=== PATIENT | female | born 1945 | race Caucasian/White ===

== ENCOUNTER 2017-02-12 07:22 | Day surgery (SDC) | payer MEDICARE, OTHER ==
[~2017-02-12 07:22] MED LIST: BUPIVACAINE HCL 0.75% INJ/PF (7.5 MG/1 ML) 10 ML SDV OD PRN; KETOROLAC TROMETHAMINE 0.45% 4 DROP/0.4 ML DROPERETTE OD PRN; LIDOCAINE 4% INJ/PF (40 MG/ML) 5 ML AMPUL OD PRN; TETRACAINE HCL 0.5% OPH SOLN 2 ML OD PRN
[2017-02-12] MEDS ORDERED: EPINEPHRINE INJ/PF 1 MG/1 ML AMPULE ONE (08:00)
[2017-02-12] MEDS ORDERED: CHONDR SU A NA/HYALUR INTRAOC KIT (SURGICARE) ONE (08:00)
[2017-02-12] MEDS ORDERED: LIDOCAINE 1% INJ-PF (10 MG/ML) 30 ML SDV ONE (08:00)
[2017-02-12] MEDS: CYCLOPENTOLATE 0.2%/PHENYLEPHRINE 1% OPH SOLN 2 ML OD PRN ×3 (08:04→08:40)
[2017-02-12] MEDS: TROPICAMIDE 1% OPH SOLN 3 ML OD PRN ×3 (08:04→08:40)
[2017-02-12] MEDS: BESIFLOXACIN HCL 0.6% OPH SUSP 5 ML BOTTLE OD PRN ×4 (08:05→09:16)
[2017-02-12] MEDS: LIDOCAINE 3.5% OPH GEL/PF 1 ML/TUBE OS PRN ×3 (08:06→08:55)
[2017-02-12] MEDS: TOBRAMYCIN SULFATE/DEXAMETH OPH OINTMENT 3.5 GM ONE ×2 (09:16)
== END 2017-02-12 09:58 | disposition home or self-care (01) ==
LOC: SC 07:22
PROVIDERS: ATTEND Ophthalmology
PROC: 08RJ3JZ Replacement of Right Lens with Synthetic Substitute, Percutaneous Approach (ICD-10-PCS; principal; 2017-02-12 08:30)
DX: H25.11 Age-related nuclear cataract, right eye (principal); Z98.42 Cataract extraction status, left eye; Z96.1 Presence of intraocular lens; M19.90 Unspecified osteoarthritis, unspecified site; E11.9 Type 2 diabetes mellitus without complications; I10 Essential (primary) hypertension; E78.00 Pure hypercholesterolemia, unspecified; E03.9 Hypothyroidism, unspecified; K21.9 Gastro-esophageal reflux disease without esophagitis; J44.9 Chronic obstructive pulmonary disease, unspecified; I49.9 Cardiac arrhythmia, unspecified; D64.9 Anemia, unspecified; Z79.84 Long term (current) use of oral hypoglycemic drugs; Z79.899 Other long term (current) drug therapy; Z87.891 Personal history of nicotine dependence
CPT/HCPCS: 66984; 82962; V2630; J3490 ×3; A9270 ×2; J0171; 142

== ENCOUNTER → 2017-08-19 | Outpatient (CLI) | payer MEDICARE, OTHER ==
--- NOTE | 2017-08-19 16:20 | WOMENS IMAGING REPORT ---
EXAM DESCRIPTION: BILAT SCREENING MAMMO W/CAD COMPLETED DATE/TIME: 08/19/2017 11:04 am REASON FOR STUDY: ROUTINE SCREENING;Z12.31 Z12.31 ENCNTR SCREEN MAMMOGRAM FOR MALIGNANT NEOPLASM OF MARY COMPARISON: 2008 TECHNIQUE: Standard craniocaudal and mediolateral oblique views of each breast recorded using Wowsaia l acquisition. LIMITATIONS: None. FINDINGS: RIGHT BREAST MASSES: No suspicious masses. CALCIFICATIONS: No new or suspicious calcifications. ARCHITECTURAL DISTORTION: None. DEVELOPING DENSITY: None. ASYMMETRY: None noted. OTHER: No other significant findings. LEFT BREAST MASSES: No suspicious masses. CALCIFICATIONS: Coarse dense benign appearing calcification left breast retroareolar region unchanged from 2009. In the left breast about 5 cm from the nipple at the 11 o'clock position faint microcalc ifications are present which require further investigation with compression magnification views and l eft breast 90 mediolateral view. ARCHITECTURAL DISTORTION: None. DEVELOPING DENSITY: None. ASYMMETRY: None noted. OTHER: No other significant findings. Read with the assistance of CAD. .[facility] - R2 Cenova Version 1.3 .[facility] - R2 Cenova Version 1.3 .[facility] - R2 Cenova Version 2.4 .[facility] R2 Cenova Version 2.4 .[facility] - R2 Medical Claims Specialist Version 9.2 IMPRESSION: No mammographic evidence for malignancy right breast Left breast microcalcifications new since 2009, for which additional diagnostic mammograms are recomm ended BREAST DENSITY: b. There are scattered areas of fibroglandular density. BIRAD: 0 Incomplete: Needs Additional Imaging Evaluation and/or prior Mammograms for Comparison. RECOMMENDATION: RECOMMENDED FOLLOW-UP: Additional left breast diagnostic mammograms The patient will be contacted for additional imaging. COMMENT: The patient has been notified of the results by letter per SA requirements. Additional no tification policies are in place for contacting patient with suspicious or incomplete findings. Quality ID #[id number]: The [employer] recommends an annual screening mammogram for women aged 40 years or over. This facility utilizes a reminder system to ensure that all patients receive reminder letters, and/or direct phone calls for appointments. This includes reminders for routine scr eening mammograms, diagnostic mammograms, or other Breast Imaging Interventions when appropriate. Th is patient will be placed in the appropriate reminder system. The [employer] (ACR) has developed recommendations for screening MRI of the breast s in certain patient populations, to be used in conjunction with mammography. Breast MRI surveillanc e may be appropriate for women with more than 20% lifetime risk of developing breast cancer as deter mined by genetic testing, significant family history of the disease, or history of mantle radiation f or Hodgkins Disease. ACR Practice Guidelines 2008. TECHNICAL DOCUMENTATION: FINDING NUMBER: (1) ASSESSMENT: (1) JOB ID: [id number] [employer]- All Rights Reserved Reading location - IP/workstation name: [facility]
== END ==
LOC: WI 11:40
PROVIDERS: ATTEND Physician Assistant Medical
DX: Z12.31 Encounter for screening mammogram for malignant neoplasm of breast (principal)
CPT/HCPCS: 77067

== ENCOUNTER → 2017-09-02 | Outpatient (CLI) | payer MEDICARE, OTHER ==
--- NOTE | 2017-09-02 18:42 | WOMENS IMAGING REPORT ---
EXAM DESCRIPTION: LEFT DIAGNOSTIC MAMMO W/CAD COMPLETED DATE/TIME: 09/02/2017 10:16 am REASON FOR STUDY: CALCIFICATIONS; R92.0 R92.0 MAMMOGRAPHIC MICROCALCIFICATION FOUND ON DX IMAGING O F COMPARISON: Mammograms 08/19/2017, 08/11/2008 TECHNIQUE: Compression magnification craniocaudal and 90 mediolateral images of the breast recorded with digital acquisition. Left whole breast 90 mediolateral view LIMITATIONS: None. FINDINGS: BREAST: Left MASSES: No suspicious masses. CALCIFICATIONS: Coarse dense benign appearing calcification in the retroareolar region 12 o'clock pos ition. Coarse dense calcifications left breast 12 o'clock position 5 cm from the nipple. ARCHITECTURAL DISTORTION: None. DEVELOPING DENSITY: None. ASYMMETRY: None noted. OTHER: No other significant findings. Read with the assistance of CAD. .[facility] - R2 Cenova Version 1.3 .[facility] - R2 Cenova Version 1.3 .[facility] - R2 Cenova Version 2.4 .[facility] [place] R2 Cenova Version 2.4 .[facility] - R2 [employer] Version 9.2 IMPRESSION: No mammographic evidence for malignancy BREAST DENSITY: b. There are scattered areas of fibroglandular density. BIRAD: 2 Benign findings. RECOMMENDATION: RECOMMENDED FOLLOW UP: Please continue yearly bilateral screening in July 2018. Pl ease consider bilateral screening tomosynthesis SPECIFIC INTERVENTION/IMAGING/CONSULTATION RECOMMENDED:No additional intervention/ imaging/consultati on needed at this time. COMMUNICATION:Patient notified by letter COMMENT: The patient has been notified of the results by letter per SA requirements. Additional no tification policies are in place for contacting patient with suspicious or incomplete findings. Quality ID #[id number]: The [employer] recommends an annual screening mammogram for women aged 40 years or over. This facility utilizes a reminder system to ensure that all patients receive reminder letters, and/or direct phone calls for appointments. This includes reminders for routine scr eening mammograms, diagnostic mammograms, or other Breast Imaging Interventions when appropriate. Th is patient will be placed in the appropriate reminder system. The [employer] (ACR) has developed recommendations for screening MRI of the breast s in certain patient populations, to be used in conjunction with mammography. Breast MRI surveillanc e may be appropriate for women with more than 20% lifetime risk of developing breast cancer as deter mined by genetic testing, significant family history of the disease, or history of mantle radiation f or Hodgkins Disease. ACR Practice Guidelines 2008. TECHNICAL DOCUMENTATION: FINDING NUMBER: (1) ASSESSMENT: (1) JOB ID: [id number] [employer]- All Rights Reserved Reading location - IP/workstation name: [facility]-RR2
== END ==
LOC: WI 10:01
PROVIDERS: ATTEND Family Medicine
DX: R92.0 Mammographic microcalcification found on diagnostic imaging of breast (principal)

== ENCOUNTER 2018-05-07 11:25 | Emergency (ER) | payer MEDICARE, OTHER ==
[2018-05-07] MEDS ORDERED: NORMAL SALINE 1000 ML 500 ML IV ONE (11:54)
--- NOTE | 2018-05-07 11:56 | ER Document Report ---
ED Medical Screen (RME) - General Chief Complaint: Abnormal Lab Results Stated Complaint: ABNORMAL LABS Time Seen by Provider: 05/07/18 11:52 Notes: 72 years old female with a history of blood transfusion was sent over here for another blood transfusion due to low blood count. Sent over by the primary care physician. She had extensive extensive workup done in the hospital. TRAVEL OUTSIDE OF THE [place] IN LAST 30 DAYS: No - Related Data Allergies/Adverse Reactions: No Known Allergies Allergy (Verified 05/07/18 11:31) Past Medical History - Social History Frequency of alcohol use: None Drug Abuse: None - Past Medical History Cardiac Medical History: Reports: Hx Hypercholesterolemia, Hx Hypertension - MEDICATED Denies: Hx Heart Attack Pulmonary Medical History: Denies: Hx Asthma Neurological Medical History: Denies: Hx Cerebrovascular Accident, Hx Seizures Endocrine Medical History: Reports: Hx Diabetes Mellitus Type 2 Renal/ Medical History: Reports: Hx Kidney Stones. Denies: Hx Peritoneal Dialysis GI Medical History: Reports: Hx Hiatal Hernia. Denies: Hx Hepatitis, Hx Ulcer Musculoskeltal Medical History: Reports Hx Arthritis Psychiatric Medical History: Reports: Hx Depression Infectious Medical History: Denies: Hx Hepatitis Past Surgical History: Reports: Hx Cholecystectomy, Hx Tonsillectomy. Denies: Hx Mastectomy, Hx Open Heart Surgery, Hx Pacemaker - Immunizations Hx Diphtheria, Pertussis, Tetanus Vaccination: No History of Influenza Vaccine for 03/2017 - 07/2017 Season: Refused Physical Exam - Vital signs Vitals: Temp Pulse Resp BP Pulse Ox 98.5 F 105 H 14 116/45 L 99 05/07/18 11:31 05/07/18 11:31 05/07/18 11:31 05/07/18 11:31 05/07/18 11:31 Course - Vital Signs Vital signs: Temp Pulse Resp BP Pulse Ox 98.5 F 105 H 14 116/45 L 99 05/07/18 11:31 05/07/18 11:31 05/07/18 11:31 05/07/18 11:31 05/07/18 11:31 Doctor's Discharge - Discharge Referrals: SRINI MENDOZA MD [Primary Care Provider] - Follow up as needed
[2018-05-07 12:58] LABS: ABSOLUTE EOSINOPHILS # (AUTO) 0.1 10^3/uL (0.0-0.6); ABSOLUTE LYMPHOCYTES (AUTO) 0.2 10^3/uL (0.5-4.7); ABSOLUTE MONOCYTES (AUTO) 0.1 10^3/uL (0.1-1.4); ABSOLUTE NEUT (AUTO) 1.9 10^3/uL (1.7-8.2); BASOPHILS % (AUTO) 0.6 % (0-2); EOSINOPHILS % (AUTO) 2.7 % (0-6); HEMATOCRIT 19.7 % (36.0-47.0); LYMPHOCYTES % (AUTO) 9.9 % (13-45); MEAN CORPUSCULAR HEMOGLOBIN 27.2 pg (27.0-33.4); MEAN CORPUSCULAR HGB CONC 32.7 g/dL (32.0-36.0); MEAN CORPUSCULAR VOLUME 83 fl (80-97); MONOCYTES % (AUTO) 5.6 % (3-13); RED BLOOD COUNT 2.36 10^6/uL (3.72-5.28); RED CELL DISTRIBUTION WIDTH 19.5 % (11.5-14.0); SEGMENTED NEUTROPHILS % (AUTO) 81.2 % (42-78); TOTAL CELLS COUNTED % (AUTO) 100 %; WHITE BLOOD COUNT 2.4 10^3/uL (4.0-10.5)
[2018-05-07 13:18] LABS: ALANINE AMINOTRANSFERASE 16 U/L (9-52); ALBUMIN 3.1 g/dL (3.5-5.0); ALKALINE PHOSPHATASE 118 U/L (38-126); ANION GAP 11 (5-19); ASPARTATE AMINO TRANSFERASE 33 U/L (14-36); BILIRUBIN,DIRECT 0.3 mg/dL (0.0-0.4); BILIRUBIN,TOTAL 0.6 mg/dL (0.2-1.3); BLOOD UREA NITROGEN 15 mg/dL (7-20); CALCIUM 8.5 mg/dL (8.4-10.2); CARBON DIOXIDE 24 mmol/L (22-30); CHLORIDE 108 mmol/L (98-107); GLUCOSE 205 mg/dL (75-110); POTASSIUM 4.3 mmol/L (3.6-5.0); SODIUM 142.6 mmol/L (137-145); TOTAL PROTEIN 7.9 g/dL (6.3-8.2)
[2018-05-07] MEDS ORDERED: NORMAL SALINE 250 ML IV PRN (13:19)
[2018-05-07 13:27] LABS: HEMOGLOBIN 6.4 g/dL (12.0-15.5)
[2018-05-07 13:28] LABS: PLATELET COUNT 95 10^3/uL (150-450)
--- NOTE | 2018-05-07 13:34 | ER Document Report ---
ED General - General Chief Complaint: Abnormal Lab Results Stated Complaint: ABNORMAL LABS Time Seen by Provider: 05/07/18 11:52 Notes: 72-year-old female with a history of cirrhosis of the liver and esophageal varices presents with low hemoglobin. The patient has been worked up extensively in the past for this she has had multiple clipping of varices. She denies any hematemesis. She has dark stools from time to time. This is not abnormal for her she gets frequent blood transfusions. She sees [facility] gastroenterology [facility]. The patient was sent over for blood transfusion. TRAVEL OUTSIDE OF THE [place] IN LAST 30 DAYS: No - Related Data Allergies/Adverse Reactions: No Known Allergies Allergy (Verified 05/07/18 11:31) Past Medical History - Social History Smoking Status: Never Smoker Frequency of alcohol use: None Drug Abuse: None Family History: Reviewed & Not Pertinent Patient has suicidal ideation: No Patient has homicidal ideation: No - Past Medical History Cardiac Medical History: Reports: Hx Hypercholesterolemia, Hx Hypertension - MEDICATED Denies: Hx Heart Attack Pulmonary Medical History: Denies: Hx Asthma Neurological Medical History: Denies: Hx Cerebrovascular Accident, Hx Seizures Endocrine Medical History: Reports: Hx Diabetes Mellitus Type 2 Renal/ Medical History: Reports: Hx Kidney Stones. Denies: Hx Peritoneal Dialysis GI Medical History: Reports: Hx Hiatal Hernia. Denies: Hx Hepatitis, Hx Ulcer Musculoskeletal Medical History: Reports Hx Arthritis Psychiatric Medical History: Reports: Hx Depression Infectious Medical History: Denies: Hx Hepatitis Past Surgical History: Reports: Hx Cholecystectomy, Hx Tonsillectomy. Denies: Hx Mastectomy, Hx Open Heart Surgery, Hx Pacemaker - Immunizations Hx Diphtheria, Pertussis, Tetanus Vaccination: No Review of Systems - Review of Systems Constitutional: Malaise, Weakness. denies: Chills, Fever Gastrointestinal: Black stools Hematologic/Lymphatic: Anemia, Easy bleeding -: Yes All other systems reviewed and negative Physical Exam - Vital signs Vitals: Temp Pulse Resp BP Pulse Ox 98.5 F 105 H 14 116/45 L 99 05/07/18 11:31 12 11:31 05/07/18 11:31 05/07/18 11:31 05/07/18 11:31 - Notes Notes: GENERAL_APPEARANCE: well_nourished, alert, cooperative, no_acute_distress, no_ obvious_discomfort. VITALS: reviewed, see vital signs table. HEAD: no_swelling\tenderness on the head. EYES: PERRL, EOMI, conjunctiva_pale NOSE: no_nasal_discharge. MOUTH: (-)decreased moisture. THROAT: no_throat_inflammation, no_airway_obstruction. no_lymphadenopathy NECK: supple, no_neck_tenderness, (-)thyromegaly. BACK: no_back_tenderness. CHEST_WALL: no_chest_tenderness. LUNGS: no_wheezing, no_rales, no_rhonchi, (-)accessory muscle use, good air exchange bilateral. HEART: normal_rate, normal_rhythm, normal_S1, normal_S2, (-)S3, (-)S4, no_ murmur, no_rub. ABDOMEN: normal_BS, soft, ascites is present, no_abd_tenderness, (-)guarding, ( -)rebound, no_organomegaly, no_abd_masses. EXTREMITIES: good pulses in all_extremities, no_swelling\tenderness in the extremities, no_edema. SKIN: warm, dry, good_color, no_rash. Chronic skin changes associated with cirrhosis MENTAL_STATUS: speech_clear, oriented_X_3, normal_affect, responds_ appropriately to questions. NEURO: Neg Motor or Sensory Deficits on exam, CN 2-12 intact, DTR 2+ symmetric x 4, No cerbellar signs Course - Re-evaluation Re-evalutation: 05/07/18 13:33 The patient presents with anemia. She has had this on frequent times. She has cirrhosis and likely has a baseline coagulopathy due to that. She also has esophageal varices which have been clipped multiple times she has no signs of brisk active bleeding no hematemesis. States she has black stools on and off from time to time. She is seeing gastroenterology on multiple occasions. She is been told to get blood transfusion she states she usually has to get at least 2 units once a month. Patient stated she is really in no pain and this is not new she was sent in for blood only no additional workup. She is happy to follow-up with her senior technical analyst Dr[facility]. She was transfused 2 units of blood and will be discharged home she felt better after the transfusion of blood. 12/06/18 15:52 Patient is doing well and will be discharged - Vital Signs Vital signs: Temp Pulse Resp BP Pulse Ox 98.3 F 98 22 H 115/63 99 05/07/18 15:49 05/07/18 15:49 05/07/18 15:49 05/07/18 15:49 05/07/18 15:49 - Laboratory Result Diagrams: 05/07/18 12:10 05/07/18 12:10 Laboratory results interpreted by me: 05/07/18 05/07/18 05/07/18 12:10 12:10 12:10 WBC 2.4 L RBC 2.36 L Hgb 6.4 L Hct 19.7 L RDW 19.5 H Plt Count 95 L Seg Neutrophils % 81.2 H Lymphocytes % 9.9 L Absolute Lymphocytes 0.2 L Chloride 108 H Glucose 205 H POC Glucose Albumin 3.1 L Crossmatch See Detail 05/07/18 13:03 WBC RBC Hgb Hct RDW Plt Count Seg Neutrophils % Lymphocytes % Absolute Lymphocytes Chloride Glucose POC Glucose 180 H Albumin Crossmatch Discharge - Discharge Clinical Impression: Anemia Qualifiers: Anemia type: iron deficiency Iron deficiency anemia type: chronic blood loss Qualified Code(s): D50.0 - Iron deficiency anemia secondary to blood loss ( chronic) Condition: Good Disposition: HOME, SELF-CARE Instructions: Anemia ([facility]) Additional Instructions: Please follow-up with Dr. Mcgregor from [facility] gastroenterology Referrals: SRINI MENDOZA MD [Primary Care Provider] - Follow up as needed
[2018-05-07 18:50] VITALS: BP 133/73
== END 2018-05-07 19:07 | disposition home or self-care (01) ==
LOC: ER 11:25
DX: D50.0 Iron deficiency anemia secondary to blood loss (chronic) (principal); R53.81 Other malaise; K74.60 Unspecified cirrhosis of liver; E78.00 Pure hypercholesterolemia, unspecified; I10 Essential (primary) hypertension; E11.9 Type 2 diabetes mellitus without complications; Z87.442 Personal history of urinary calculi; Z90.49 Acquired absence of other specified parts of digestive tract
CPT/HCPCS: 99284; 86900; 86901; 36415; 36430; 86850; 82962; 85025; 80053; 86920; P9016

== ENCOUNTER 2018-11-16 11:46 | Emergency (ER) | payer MEDICARE, OTHER ==
--- NOTE | 2018-11-16 12:15 | ER Document Report ---
ED Medical Screen (RME) - General Chief Complaint: Abnormal Lab Results Stated Complaint: ABNORMAL LABS Time Seen by Provider: 11/16/18 12:11 Primary Care Provider: SRINI MENDOZA MD [Primary Care Provider] - Follow up as needed TRAVEL OUTSIDE OF THE [place] IN LAST 30 DAYS: No - HPI Notes: 11/16/18 12:14 Patient is a 73-year-old female with a history of liver cirrhosis, anemia with previous need for transfusion, diabetes who presents for hemoglobin of 6.8 and dizziness with standing/ambulation. Patient states that she is otherwise feeling well and is eating and drinking without difficulty. She is urinating normally and having normal bowel movements. She has not noticed any melena, hematochezia, or any other areas of bleeding. Denies MUELLER, fever, neck pain, URI, CP, SOB, Abd pain, dysuria, back pain, or rash. I have treated and performed a rapid initial assessment of this patient. A comprehensive ED assessment and evaluation of the patient, analysis of test resu lts and completion of medical decision making process will be conducted by additional ED providers. PHYSICAL EXAMINATION: GENERAL: Well-appearing, well-nourished and in no acute distress. A&Ox4. A nswers questions appropriately. LUNGS: Breath sounds clear to auscultation bilaterally and equal. No wheezes rales or rhonchi. HEART: Regular rate and rhythm without murmurs, rubs, gallops. - Related Data Allergies/Adverse Reactions: No Known Allergies Allergy (Verified 05/07/18 11:31) Past Medical History - Past Medical History Cardiac Medical History: Reports: Hx Hypercholesterolemia, Hx Hypertension - MEDICATED Denies: Hx Heart Attack Pulmonary Medical History: Reports: Hx COPD Denies: Hx Asthma Neurological Medical History: Denies: Hx Cerebrovascular Accident, Hx Seizures Endocrine Medical History: Reports: Hx Diabetes Mellitus Type 2 Renal/ Medical History: Reports: Hx Kidney Stones. Denies: Hx Peritoneal Dialysis GI Medical History: Reports: Hx Hiatal Hernia. Denies: Hx Hepatitis, Hx Ulcer Musculoskeltal Medical History: Reports Hx Arthritis Psychiatric Medical History: Reports: Hx Depression Infectious Medical History: Denies: Hx Hepatitis Past Surgical History: Reports: Hx Cholecystectomy, Hx Tonsillectomy. Denies: Hx Mastectomy, Hx Open Heart Surgery, Hx Pacemaker - Immunizations Hx Diphtheria, Pertussis, Tetanus Vaccination: No History of Influenza Vaccine for 03/2017 - 07/2017 Season: Refused Physical Exam - Vital signs Vitals: Temp Pulse Resp BP Pulse Ox 97.7 F 69 16 111/45 L 97 11/16/18 12:02 11/16/18 12:02 11/16/18 12:02 11/16/18 12:02 11/16/18 12:02 Course - Vital Signs Vital signs: Temp Pulse Resp BP Pulse Ox 97.7 F 69 16 111/45 L 97 11/16/18 12:02 11/16/18 12:02 11/16/18 12:02 11/16/18 12:02 11/16/18 12:02 Doctor's Discharge - Discharge Referrals: SRINI MENDOZA MD [Primary Care Provider] - Follow up as needed
[2018-11-16 13:16] LABS: ABSOLUTE EOSINOPHILS # (AUTO) 0.1 10^3/uL (0.0-0.6); ABSOLUTE LYMPHOCYTES (AUTO) 0.2 10^3/uL (0.5-4.7); ABSOLUTE MONOCYTES (AUTO) 0.1 10^3/uL (0.1-1.4); BASOPHILS % (AUTO) 0.9 % (0-2); EOSINOPHILS % (AUTO) 3.6 % (0-6); HEMATOCRIT 21.2 % (36.0-47.0); LYMPHOCYTES % (AUTO) 8.3 % (13-45); MEAN CORPUSCULAR HGB CONC 31.7 g/dL (32.0-36.0); MEAN CORPUSCULAR VOLUME 82 fl (80-97); MONOCYTES % (AUTO) 5.7 % (3-13); PLATELET COUNT 104 10^3/uL (150-450); RED BLOOD COUNT 2.59 10^6/uL (3.72-5.28); RED CELL DISTRIBUTION WIDTH 18.8 % (11.5-14.0); SEGMENTED NEUTROPHILS % (AUTO) 81.5 % (42-78); TOTAL CELLS COUNTED % (AUTO) 100 %; WHITE BLOOD COUNT 2.5 10^3/uL (4.0-10.5)
[2018-11-16 13:18] LABS: HEMOGLOBIN 6.7 g/dL (12.0-15.5)
[2018-11-16 13:21] LABS: INTERNATIONAL RATION (INR) 1.18; PROTHROMBIN TIME 15.6 SEC (11.4-15.4)
[2018-11-16 13:21] LABS: APPEARANCE,URINE CLEAR; BILIRUBIN,URINE NEGATIVE (NEGATIVE); COLOR,URINE YELLOW; GLUCOSE, URINE >=500 mg/dL (NEGATIVE); KETONES,URINE NEGATIVE (NEGATIVE); LEUKOCYTE ESTERASE,URINE TRACE (NEGATIVE); NITRITE,URINE NEGATIVE (NEGATIVE); PROTEIN,URINE NEGATIVE (NEGATIVE); URINE SPECIFIC GRAVITY 1.025; UROBILINOGEN,URINE NEGATIVE mg/dL (<2.0)
[2018-11-16 13:22] LABS: PARTIAL THROMBOPLASTIN TIME 38.1 SEC (23.5-35.8)
[2018-11-16 13:37] LABS: ALANINE AMINOTRANSFERASE 17 U/L (9-52); ALBUMIN 3.3 g/dL (3.5-5.0); ALKALINE PHOSPHATASE 96 U/L (38-126); ANION GAP 7 (5-19); ASPARTATE AMINO TRANSFERASE 34 U/L (14-36); BILIRUBIN,DIRECT 0.4 mg/dL (0.0-0.4); BILIRUBIN,TOTAL 0.7 mg/dL (0.2-1.3); BLOOD UREA NITROGEN 15 mg/dL (7-20); CALCIUM 8.9 mg/dL (8.4-10.2); CARBON DIOXIDE 25 mmol/L (22-30); CHLORIDE 107 mmol/L (98-107); GLUCOSE 215 mg/dL (75-110); POTASSIUM 4.5 mmol/L (3.6-5.0); TOTAL PROTEIN 8.6 g/dL (6.3-8.2)
[2018-11-16] MEDS ORDERED: NORMAL SALINE 250 ML IV PRN ×2 (13:38)
--- NOTE | 2018-11-16 13:42 | ER Document Report ---
ED General - General Chief Complaint: Abnormal Lab Results Stated Complaint: ABNORMAL LABS Time Seen by Provider: 11/16/18 12:11 Primary Care Provider: SRINI MENDOZA MD [ACTIVE STAFF] - Follow up tomorrow TRAVEL OUTSIDE OF THE [place] IN LAST 30 DAYS: No - HPI Notes: Patient is a 73-year-old female that presents to the emergency department for chief complaint of anemia. Patient presented from home upon the request of Dr. Mendoza for blood transfusion. She has a history of anemia and states that she is not sure why she is so anemic. She is on Procrit. She states she has a GI physician who has done colonoscopy and endoscopy and not found a source of bleeding. She denies any new black or bloody stools. She states she has been getting blood transfusion every 4 to 5 weeks for the last year. She states she has made it about 8 weeks this time. She does state over the last month she has had increased fatigue and felt some shortness of breath this week with exertion. She denies any active bleeding or other concerns. She denies recent illness, chest pain, palpitations, syncope, nausea/vomiting, fevers and abdominal pain. Past Medical History: Diabetes, anemia, hypothyroidism, hyperlipidemia Past Surgical History: Reviewed in chart Social History: Lives at home with family. Denies tobacco and alcohol Family History: Reviewed and noncontributory for presenting illness Allergies: Reviewed, see documented allergy list. REVIEW OF SYSTEMS: CONSTITUTIONAL : No fever No chills No diaphoresis No recent illness Generalized weakness EENT: No vision changes No congestion No sore throat CARDIOVASCULAR: No chest pain No palpitations RESPIRATORY: shortness of breath No cough No difficulty breathing GASTROINTESTINAL: No abdominal pain No nausea No vomiting No diarrhea GENITOURINARY: No dysuria No hematuria No difficulty urinating MUSCULOSKELETAL: No back pain No leg pain No arm pain SKIN: No rashes No lesions LYMPHATIC: No swollen, enlarged glands. NEUROLOGICAL: lightheadedness No headache No weakness No paresthesias PSYCHIATRIC: No anxiety No depression PHYSICAL EXAMINATION: Vital signs reviewed, nursing noted reviewed. GENERAL: Well-appearing, well-nourished and in no acute distress. HEAD: Atraumatic, normocephalic. EYES: Eyes appear normal, extraocular movements intact, sclera anicteric, conjunctiva are pale ENT: nares patent, oropharynx clear without exudates. Dry mucous membranes. NECK: Normal range of motion, supple without lymphadenopathy LUNGS: Breath sounds clear to auscultation bilaterally and equal. No wheezes rales or rhonchi. HEART: Regular rate and rhythm without murmurs ABDOMEN: Protuberant, soft, nontender, normoactive bowel sounds. No rebound, guarding, or rigidity. No masses appreciated. EXTREMITIES: Nontender, good range of motion, no pitting or edema. NEUROLOGICAL: No focal neurological deficits. Moves all extremities spontaneously Motor and sensory grossly intact on exam. PSYCH: Normal mood, normal affect. SKIN: Warm, Dry, normal turgor. Pale - Related Data Allergies/Adverse Reactions: No Known Allergies Allergy (Verified 05/07/18 11:31) Past Medical History - Social History Smoking Status: Former Smoker Frequency of alcohol use: None Drug Abuse: None Family History: Reviewed & Not Pertinent Patient has suicidal ideation: No Patient has homicidal ideation: No - Past Medical History Cardiac Medical History: Reports: Hx Hypercholesterolemia, Hx Hypertension - MEDICATED Denies: Hx Heart Attack Pulmonary Medical History: Reports: Hx COPD Denies: Hx Asthma Neurological Medical History: Denies: Hx Cerebrovascular Accident, Hx Seizures Endocrine Medical History: Reports: Hx Diabetes Mellitus Type 2 Renal/ Medical History: Reports: Hx Kidney Stones. Denies: Hx Peritoneal Dialysis GI Medical History: Reports: Hx Hiatal Hernia. Denies: Hx Hepatitis, Hx Ulcer Musculoskeletal Medical History: Reports Hx Arthritis Psychiatric Medical History: Reports: Hx Depression Infectious Medical History: Denies: Hx Hepatitis Past Surgical History: Reports: Hx Cholecystectomy, Hx Tonsillectomy. Denies: Hx Mastectomy, Hx Open Heart Surgery, Hx Pacemaker - Immunizations Hx Diphtheria, Pertussis, Tetanus Vaccination: No Physical Exam - Vital signs Vitals: Temp Pulse Resp BP Pulse Ox 97.7 F 69 16 111/45 L 97 11/16/18 12:02 11/16/18 12:02 11/16/18 12:02 11/16/18 12:02 11/16/18 12:02 Course - Re-evaluation Re-evalutation: 11/16/18 13:44 Vitals reviewed. Nursing notes reviewed. Patient has pancytopenia with a hemoglobin of 6.7. Chart review shows similar thrombocytopenia and leukopenia in the past. Patient will be transfused 2 units packed red blood cells for her anemia. She currently has no symptoms of active bleeding. She does appear pale but is otherwise hemodynamically stable. Patient has no other complaints other than wanting a blood transfusion. Plan to transfuse 2 units packed red blood cells and if tolerated well follow with Dr. Mendoza in the office for close reevaluation 11/16/18 17:39 Patient reevaluated. She has had about half of her first unit of blood. She states she is feeling better. She is not having any reaction to the transfusion or difficulty breathing. Patient will continue to receive blood transfusion and be discharged after if no further complications arise. Laboratory 11/16/18 11/16/18 11/16/18 12:32 12:44 12:44 WBC 2.5 L RBC 2.59 L Hgb 6.7 L Hct 21.2 L MCV 82 MCH 26.0 L MCHC 31.7 L RDW 18.8 H Plt Count 104 L Seg Neutrophils % 81.5 H Lymphocytes % 8.3 L Monocytes % 5.7 Eosinophils % 3.6 Basophils % 0.9 Absolute Neutrophils 2.0 Absolute Lymphocytes 0.2 L Absolute Monocytes 0.1 Absolute Eosinophils 0.1 Absolute Basophils 0.0 PT INR APTT Sodium 139.0 Potassium 4.5 Chloride 107 Carbon Dioxide 25 Anion Gap 7 BUN 15 Creatinine 0.84 Est GFR ( Amer) > 60 Est GFR (Non-Af Amer) > 60 Glucose 215 H Calcium 8.9 Total Bilirubin 0.7 Direct Bilirubin 0.4 Neonat Total Bilirubin Not Reportable Neonat Direct Bilirubin Not Reportable Neonat Indirect Bili Not Reportable AST 34 ALT 17 Alkaline Phosphatase 96 Total Protein 8.6 H Albumin 3.3 L Urine Color YELLOW Urine Appearance CLEAR Urine pH 6.0 Ur Specific [place] 1.025 Urine Protein NEGATIVE Urine Glucose (UA) >=500 H Urine Ketones NEGATIVE Urine Blood NEGATIVE Urine Nitrite NEGATIVE Urine Bilirubin NEGATIVE Urine Urobilinogen NEGATIVE Ur Leukocyte Esterase TRACE H Urine WBC (Auto) 2 Urine RBC (Auto) 3 Squamous Epi Cells Auto 2 Urine Ascorbic Acid 40 H Blood Type Antibody Screen Crossmatch 11/16/18 11/16/18 11/16/18 12:44 12:44 14:15 WBC RBC Hgb Hct MCV MCH MCHC RDW Plt Count Seg Neutrophils % Lymphocytes % Monocytes % Eosinophils % Basophils % Absolute Neutrophils Absolute Lymphocytes Absolute Monocytes Absolute Eosinophils Absolute Basophils PT 15.6 H INR 1.18 APTT 38.1 H Sodium Potassium Chloride Carbon Dioxide Anion Gap BUN Creatinine Est GFR ( Amer) Est GFR (Non-Af Amer) Glucose Calcium Total Bilirubin Direct Bilirubin Neonat Total Bilirubin Neonat Direct Bilirubin Neonat Indirect Bili AST ALT Alkaline Phosphatase Total Protein Albumin Urine Color Urine Appearance Urine pH Ur Specific [place] Urine Protein Urine Glucose (UA) Urine Ketones Urine Blood Urine Nitrite Urine Bilirubin Urine Urobilinogen Ur Leukocyte Esterase Urine WBC (Auto) Urine RBC (Auto) Squamous Epi Cells Auto Urine Ascorbic Acid Blood Type Cancelled A POSITIVE Antibody Screen Cancelled NEGATIVE Crossmatch See Detail See Detail - Vital Signs Vital signs: Temp Pulse Resp BP Pulse Ox 98 F 78 17 116/58 L 100 11/16/18 17:10 11/16/18 17:10 11/16/18 17:10 11/16/18 17:10 11/16/18 17:10 - Laboratory Result Diagrams: 11/16/18 12:44 11/16/18 12:44 Laboratory results interpreted by me: 11/16/18 11/16/18 11/16/18 12:32 12:44 12:44 WBC 2.5 L RBC 2.59 L Hgb 6.7 L Hct 21.2 L MCH 26.0 L MCHC 31.7 L RDW 18.8 H Plt Count 104 L Seg Neutrophils % 81.5 H Lymphocytes % 8.3 L Absolute Lymphocytes 0.2 L PT APTT Glucose 215 H Total Protein 8.6 H Albumin 3.3 L Urine Glucose (UA) >=500 H Ur Leukocyte Esterase TRACE H Urine Ascorbic Acid 40 H Crossmatch 11/16/18 11/16/18 11/16/18 12:44 12:44 14:15 WBC RBC Hgb Hct MCH MCHC RDW Plt Count Seg Neutrophils % Lymphocytes % Absolute Lymphocytes PT 15.6 H APTT 38.1 H Glucose Total Protein Albumin Urine Glucose (UA) Ur Leukocyte Esterase Urine Ascorbic Acid Crossmatch See Detail See Detail Discharge - Discharge Clinical Impression: Pancytopenia Condition: Stable Disposition: HOME, SELF-CARE Instructions: Anemia ([facility]) Additional Instructions: Please return to the emergency department if you have any worsening, or concern of your symptoms. Please return to the emergency department if you develop chest pain, difficulty breathing, severe abdominal pain, or ongoing vomiting. Please follow-up with your primary care physician in 2-3 days and any other recommended physicians. If prescribed, take all medications as directed. If you have any questions or concerns do not hesitate to return the emergency department for evaluation. Please see Dr. Mendoza in the next 1 to 2 days for reevaluation of your anemia Referrals: SRINI MENDOZA MD [ACTIVE STAFF] - Follow up tomorrow
[2018-11-16 21:51] VITALS: BP 150/73
== END 2018-11-16 21:51 | disposition home or self-care (01) ==
LOC: ER 11:46
DX: D64.9 Anemia, unspecified (principal); E03.9 Hypothyroidism, unspecified; E78.5 Hyperlipidemia, unspecified; E78.00 Pure hypercholesterolemia, unspecified; I10 Essential (primary) hypertension; J44.9 Chronic obstructive pulmonary disease, unspecified; E11.9 Type 2 diabetes mellitus without complications; M19.90 Unspecified osteoarthritis, unspecified site; F32.9 Major depressive disorder, single episode, unspecified; Z87.891 Personal history of nicotine dependence; Z90.49 Acquired absence of other specified parts of digestive tract
CPT/HCPCS: 99284; 86900; 86901; 36415; 36430; 86850; 85025; 85610; 85730; 80053; 81001; 86920; P9016

== ENCOUNTER → 2019-05-15 | Outpatient (CLI) | payer MEDICARE, OTHER | LOC: OD 08:40 | PROVIDERS: ATTEND Family Medicine | DX: K74.69 Other cirrhosis of liver (principal); D69.6 Thrombocytopenia, unspecified; K72.90 Hepatic failure, unspecified without coma; D63.8 Anemia in other chronic diseases classified elsewhere | CPT/HCPCS: 36415; 82140 ==

== ENCOUNTER 2019-08-01 10:45 | Inpatient (IN) | payer MEDICARE, OTHER ==
[2019-08-01] MEDS ORDERED: HYDROCODONE/ACETAMINOPHEN 5-325 MG TABLET PO ONE (11:00)
--- NOTE | 2019-08-01 11:10 | ER Document Report ---
ED Fall - General Chief Complaint: Fall Injury Stated Complaint: RIGHT HIP PAIN Time Seen by Provider: 08/01/19 10:51 Primary Care Provider: EDUARDO VALDEZ MD [Primary Care Provider] - Follow up as needed Notes: 74 y/o female presents for right hip pain after falling yesterday. Pt states she and her "got their wires crossed" and then she fell because he was going to turn on bedroom light while she was walking to turn on bathroom light. Pt states she usually walks with a walker. States she cannot walk due to the pain. Pt also has skin tears to right forearm. Pt denies hitting her head or LOC. Pt was offered pain medication by EMS but refused. Denies any previous injury or surgery to right hip. TRAVEL OUTSIDE OF THE [place] IN LAST 30 DAYS: No - Related data Allergies/Adverse Reactions: No Known Allergies Allergy (Verified 05/07/18 11:31) Past Medical History - Social History Smoking Status: Unknown if Ever Smoked Family History: Reviewed & Not Pertinent Patient has suicidal ideation: No Patient has homicidal ideation: No - Past Medical History Cardiac Medical History: Reports: Hx Hypercholesterolemia, Hx Hypertension - MEDICATED Denies: Hx Heart Attack Pulmonary Medical History: Reports: Hx COPD Denies: Hx Asthma Neurological Medical History: Denies: Hx Cerebrovascular Accident, Hx Seizures Endocrine Medical History: Reports: Hx Diabetes Mellitus Type 2 Renal/ Medical History: Reports: Hx Kidney Stones. Denies: Hx Peritoneal Tia lysis GI Medical History: Reports: Hx Hiatal Hernia. Denies: Hx Hepatitis, Hx Ulcer Musculoskeletal Medical History: Reports Hx Arthritis Psychiatric Medical History: Reports: Hx Depression Infectious Medical History: Denies: Hx Hepatitis Past Surgical History: Reports: Hx Cholecystectomy, Hx Tonsillectomy. Denies: Hx Mastectomy, Hx Open Heart Surgery, Hx Pacemaker - Immunizations Hx Diphtheria, Pertussis, Tetanus Vaccination: No Review of Systems - Review of Systems Notes: Constitutional: Negative for fever. HENT: Negative for sore throat. Eyes: Negative for visual changes. Cardiovascular: Negative for chest pain. Respiratory: Negative for shortness of breath. Gastrointestinal: Negative for abdominal pain, vomiting or diarrhea. Genitourinary: Negative for dysuria. Musculoskeletal: Positive for right hip pain. Negative for back pain. Skin: Negative for rash. Neurological: Negative for headaches, weakness or numbness. 10 point ROS negative except as marked above and in HPI. Physical Exam - Vital signs Vitals: Temp Pulse Resp BP Pulse Ox 98.1 F 106 H 18 118/49 L 97 08/01/19 10:46 08/01/19 10:46 08/01/19 10:46 08/01/19 10:46 08/01/19 10:46 - Notes Notes: GENERAL: Well-appearing, well-nourished and in no acute distress. HEAD: Atraumatic, normocephalic. EYES: Extraocular movements intact, sclera anicteric, conjunctiva are normal. NECK: Normal range of motion, supple without lymphadenopathy or JVD. Right hip: Tenderness to posterior hip. No tenderness to anterior hip or lateral hip. ROM limited due to pain. No tenderness to right knee. Distal pedal pulses 2+ bilaterally. Cap refill < 2 sec. Right forearm: Skin tears. FROM. NEUROLOGICAL: Cranial nerves II through XII grossly intact. Normal speech, normal gait. PSYCH: Normal mood, normal affect. SKIN: Warm, Dry, normal turgor, no rashes or lesions noted. Course - Re-evaluation Re-evalutation: 08/01/19 Right posterior hip pain. Pain upon movement. XR ordered. Pt usually ambulated with walker. 08/01/19 12:03 XR shows fractures of right superior and inferior pubic ramus. Discussed with attending, Dr. Tomas, who states admit to medicine with ortho consult. Page out to ortho, Dr. Patricio. 08/01/19 12:[address] Patricio who states he will consult. Requested consult be placed in computer. 08/01/19 12:[address] Carlos who states he will call back. 08/01/19 12:[address] Carlos who accepted pt for admission. Requested CBC. - Vital Signs Vital signs: Temp Pulse Resp BP Pulse Ox 98.1 F 106 H 18 118/49 L 97 08/01/19 10:46 08/01/19 10:46 08/01/19 10:46 08/01/19 10:46 08/01/19 10:46 Discharge - Discharge Clinical Impression: Fall Qualifiers: Encounter type: initial encounter Qualified Code(s): W19.XXXA - Unspecified fall, initial encounter Fracture of right superior pubic ramus Qualifiers: Encounter type: initial encounter Fracture type: closed Qualified Code(s): S32.511A - Fracture of superior rim of right pubis, initial encounter for closed fracture Fracture of right inferior pubic ramus Qualifiers: Encounter type: initial encounter Fracture type: closed Qualified Code(s): S32.591A - Other specified fracture of right pubis, initial encounter for closed fracture Condition: Stable Disposition: ADMITTED OBSERVATION Admitting Provider: Breanna (Hospitalist) Unit Admitted: Medical Floor Referrals: EDUARDO VALDEZ MD [Primary Care Provider] - Follow up as needed
--- NOTE | 2019-08-01 11:51 | RADIOLOGY REPORT (SQ) ---
EXAM DESCRIPTION: HIP RIGHT AP/LATERAL COMPLETED DATE/TIME: 08/01/2019 11:41 am REASON FOR STUDY: fall / bone tenderness COMPARISON: None. NUMBER OF VIEWS: Two views. TECHNIQUE: AP pelvis and additional frog-leg view of the right hip. LIMITATIONS: None. FINDINGS: MINERALIZATION: Normal. RIGHT HIP: No fracture or dislocation. Degenerative changes. No worrisome bone lesions. LEFT HIP: No fracture or dislocation. Degenerative changes. No worrisome bone lesions. PUBIS AND ISCHIUM: Fracture of the right superior and inferior pubic ramus. PELVIS: No fracture. SACRUM: No fracture or dislocation. No worrisome bone lesions. LOWER LUMBAR SPINE: No fracture or dislocation. No worrisome bone lesions. Degenerative disc disease . SOFT TISSUES: No findings. OTHER: No other significant finding. IMPRESSION: FRACTURES OF THE RIGHT SUPERIOR AND INFERIOR PUBIC RAMUS. NO EVIDENCE OF HIP FRACTURE. CHRONIC DEGENERATIVE CHANGES. TECHNICAL DOCUMENTATION: JOB ID: [id number] 2010 [employer]- All Rights Reserved Reading location - IP/workstation name: [email or web address]
[2019-08-01 13:08] LABS: ABSOLUTE LYMPHOCYTES (AUTO) 0.2 10^3/uL (0.5-4.7); ABSOLUTE MONOCYTES (AUTO) 0.3 10^3/uL (0.1-1.4); ABSOLUTE NEUT (AUTO) 3.4 10^3/uL (1.7-8.2); BASOPHILS % (AUTO) 0.2 % (0-2); EOSINOPHILS % (AUTO) 0.8 % (0-6); HEMOGLOBIN 9.7 g/dL (12.0-15.5); LYMPHOCYTES % (AUTO) 5.3 % (13-45); MEAN CORPUSCULAR HEMOGLOBIN 33.1 pg (27.0-33.4); MEAN CORPUSCULAR HGB CONC 34.5 g/dL (32.0-36.0); MEAN CORPUSCULAR VOLUME 96 fl (80-97); RED BLOOD COUNT 2.92 10^6/uL (3.72-5.28); RED CELL DISTRIBUTION WIDTH 15.6 % (11.5-14.0); SEGMENTED NEUTROPHILS % (AUTO) 86.7 % (42-78); TOTAL CELLS COUNTED % (AUTO) 100 %; WHITE BLOOD COUNT 3.9 10^3/uL (4.0-10.5)
[2019-08-01 13:10] LABS: INTERNATIONAL RATION (INR) 1.25; PROTHROMBIN TIME 15.8 SEC (11.4-15.4)
[2019-08-01 13:11] LABS: PARTIAL THROMBOPLASTIN TIME 33.8 SEC (23.5-35.8)
[2019-08-01 13:23] LABS: ALBUMIN 3.6 g/dL (3.5-5.0); ALKALINE PHOSPHATASE 95 U/L (38-126); ANION GAP 8 (5-19); ASPARTATE AMINO TRANSFERASE 44 U/L (14-36); BILIRUBIN,DIRECT 0.3 mg/dL (0.0-0.4); BILIRUBIN,TOTAL 0.8 mg/dL (0.2-1.3); BLOOD UREA NITROGEN 44 mg/dL (7-20); CALCIUM 9.2 mg/dL (8.4-10.2); CARBON DIOXIDE 22 mmol/L (22-30); CHLORIDE 110 mmol/L (98-107); GLUCOSE 158 mg/dL (75-110); POTASSIUM 4.6 mmol/L (3.6-5.0); TOTAL PROTEIN 8.7 g/dL (6.3-8.2)
[2019-08-01 13:28] LABS: PLATELET COUNT 58 10^3/uL (150-450)
[2019-08-01] MEDS ORDERED: ONDANSETRON 4 MG TAB.RAPDIS PO PRN (14:11)
[2019-08-01] MEDS ORDERED: MAG HYDROX/AL HYDROX/SIMETH SUSP 30 ML UDCUP PO PRN (14:11)
[2019-08-01] MEDS ORDERED: GLUCAGON,HUMAN RECOMB 1 MG INJ SUBCUT PRN (14:11)
[2019-08-01] MEDS ORDERED: DEXTROSE 40% GEL 15 GM TUBE PO PRN ×2 (14:11)
[2019-08-01] MEDS ORDERED: DEXTROSE 50%-WATER 25 GM/50 ML DISP.SYRIN IV PRN ×2 (14:11)
--- NOTE | 2019-08-01 14:39 | PDOC H&P ---
History of Present Illness Admission Date/PCP: 08/01/19 13:28 EDUARDO VALDEZ MD Patient complains of: Right hip pain History of Present Illness: MELANY STILL is a 74 year old female with a history of type 2 diabetes mellitus, cirrhosis [does not know unknown etiology], hypothyroidism, chronic anemia on epo, who was brought into the hospital by family after experiencing fall. Apparently patient was walking in the dark today when she experienced a mechanical engineering specialist al fall. Denies any head impact. Denies any headache at this time. However patient complains of significant pain in her right hip. Denies any loss of consciousness. Also denies hitting her neck anywhere. In the emergency department, patient was noted to have a fracture of her right superior and inferior pubis ramus and subsequently Dr. Patricio was consulted who recommends admission and he will evaluate patient. Patient at this time complains of 8/10 pain in her right hip when she moves but if she lays steady the pain is only mild. Past Medical History Cardiac Medical History: Reports: Hyperlipidema, Heart Murmur Denies: Atrial Fibrillation, Congestive Heart Failure, Coronary Artery Disease, Myocardial Infarction Pulmonary Medical History: Denies: Asthma, Chronic Obstructive Pulmonary Disease (COPD) Neurological Medical History: Denies: Seizures Endocrine Medical History: Reports: Diabetes Mellitus Type 2 Renal/ Medical History: Denies: Chronic Kidney Disease GI Medical History: Reports: Cirrhosis, Hiatal Hernia Denies: Hepatitis Musculoskeltal Medical History: Reports: Arthritis Hematology: Reports: Anemia, Bleeding Tendencies Denies: Sickle Cell Disease Infectious Medical History: Denies: Hepatitis B, Hepatitis C Past Surgical History Past Surgical History: Reports: Cholecystectomy, Tonsillectomy Denies: Amputation, Mastectomy, Pacemaker Social History Smoking Status: Former Smoker Frequency of Alcohol Use: None Hx Recreational Drug Use: No Drugs: None Hx Prescription Drug Abuse: No - Advance Directive Resuscitation Status: Do Not Resuscitate - DNR/DNI confirmed by patient in the presence of her and granddaughter. Family History Family History: Hypertension Parental Family History Reviewed: Yes Children Family History Reviewed: NA Sibling(s) Family History Reviewed.: NA Medication/Allergy Home Medications: Canagliflozin [Invokana] 100 mg PO QAM 08/01/19 Insulin Glargine,Hum.rec.anlog [Lantus (Pyxis) Insulin 100 Unit/1 ml 10 ml] 30 units SUBCUT QPM 08/01/19 Insulin Lispro [Humalog Insulin (Lispro) 100 unit/mL] 0 unit SUBCUT .SLIDING SCALE 08/01/19 Levothyroxine Sodium [Synthroid 0.025 mg Tablet] 25 mcg PO Q6AM 08/01/19 Metformin HCl 500 mg PO BIDBS 08/01/19 Allergies/Adverse Reactions: No Known Allergies Allergy (Verified 05/07/18 11:31) Review of Systems Constitutional: ABSENT: chills, fever(s) Nose, Mouth, and Throat: ABSENT: headache(s) Cardiovascular: ABSENT: chest pain Respiratory: ABSENT: dyspnea Gastrointestinal: ABSENT: abdominal pain, nausea, vomiting Genitourinary: ABSENT: dysuria Integumentary: ABSENT: diaphoresis Neurological: ABSENT: confusion, dizziness Endocrine: ABSENT: polyuria Hematologic/Lymphatic: PRESENT: easy bruising Physical Exam Vital Signs: Temp Pulse Resp BP Pulse Ox 98.1 F 106 H 18 113/64 96 08/01/19 10:46 08/01/19 10:46 08/01/19 10:46 08/01/19 14:00 08/01/19 14:01 Intake & Output 07/31/19 08/01/19 08/02/19 06:59 06:59 06:59 Weight 60.3 kg General appearance: PRESENT: no acute distress, cooperative, thin Head exam: PRESENT: atraumatic Neck exam: ABSENT: JVD Respiratory exam: PRESENT: symmetrical, unlabored. ABSENT: tachypnea, wheezes Cardiovascular exam: PRESENT: RRR, +S1, +S2, systolic murmur. ABSENT: tachycardia GI/Abdominal exam: PRESENT: normal bowel sounds, soft. ABSENT: rebound, rigid, tenderness Rectal exam: PRESENT: deferred Extremities exam: ABSENT: pedal edema, +1 edema Musculoskeletal exam: PRESENT: tenderness - Pain and tenderness over the right hip towards the posterior lateral region. ABSENT: ambulatory, full ROM Neurological exam: PRESENT: alert, awake. ABSENT: aphasic Psychiatric exam: ABSENT: agitated, anxious Focused psych exam: ABSENT: pressured speech Results Laboratory Results: 08/01/19 12:50 08/01/19 12:50 08/01/19 08/01/19 12:50 12:50 WBC 3.9 L RBC 2.92 L Hgb 9.7 L Hct 28.0 L MCV 96 MCH 33.1 MCHC 34.5 RDW 15.6 H Plt Count 58 L Seg Neutrophils % 86.7 H Sodium 140.1 Potassium 4.6 Chloride 110 H Carbon Dioxide 22 Anion Gap 8 BUN 44 H Creatinine 0.99 Est GFR ( Amer) > 60 Glucose 158 H Calcium 9.2 Total Bilirubin 0.8 AST 44 H Alkaline Phosphatase 95 Total Protein 8.7 H Albumin 3.6 Impressions: Hip/Pelvis X-Ray 08/01/19 00:00 IMPRESSION: FRACTURES OF THE RIGHT SUPERIOR AND INFERIOR PUBIC RAMUS. NO EVIDENCE OF HIP FRACTURE. CHRONIC DEGENERATIVE CHANGES. Assessment and Plan - Diagnosis (1) Multiple closed stable fractures of ramus of right pubis Qualifiers: Encounter type: initial encounter Qualified Code(s): S32.591A - Other specified fracture of right pubis, initial encounter for closed fracture Is this a current diagnosis for this admission?: Yes Plan: Reviewed x-ray image which shows fractures involving the inferior and superior right pubis ramus Dr. Patricio consulted to evaluate Pain control with Tylenol and oxycodone. DVT prophylaxis (2) Cirrhosis of liver Qualifiers: Hepatic cirrhosis type: unspecified hepatic cirrhosis Ascites presence: unspecified Qualified Code(s): K74.60 - Unspecified cirrhosis of liver Is this a current diagnosis for this admission?: Yes Plan: Etiology unknown. Continue spironolactone. Avoid hepatotoxic medications. (3) Chronic anemia Is this a current diagnosis for this admission?: Yes Plan: Patient states that she receives EPO about once a month outpatient. Hemoglobin seems to be stable at this time as compared to prior. (4) Diabetes mellitus type 2 in nonobese Is this a current diagnosis for this admission?: Yes Plan: Home regimen: Humalog sliding scale, Lantus 30 units nightly but varies depending on blood sugars, metformin and Invokana We will place patient on sliding scale insulin Lantus. Continue Accu-Cheks. (5) Thrombocytopenia Is this a current diagnosis for this admission?: Yes Plan: Secondary to cirrhosis. Puts patient at increased bleeding risk. - Time Time Spent with patient: 35 or more minutes
--- NOTE | 2019-08-01 14:44 | ADVANCED CARE ---
- Diagnosis (1) Multiple closed stable fractures of ramus of right pubis Diagnosis Current: Yes (2) Cirrhosis of liver Diagnosis Current: Yes (5) Thrombocytopenia Diagnosis Current: Yes Attendance: Patient, patient's and granddaughter as well as myself Resuscitation Status: Do Not Resuscitate - DNR/DNI confirmed by patient in the presence of her and granddaughter. Discussion: I discussed patient's medical conditions. Also discussed patient's chronic liver disease/cirrhosis and her increased bleeding risk. Discussed with patient and family about CODE STATUS in the setting of cardiac arrest for which patient confirms DNR/DNR. Also discussed if okay for intubation, in the absence of cardiac arrest, if patient for any reason went into respiratory failure and required mechanical ventilation. In this setting, patient was confirmed that she would NOT want intubation. Furthermore, I discussed if patient will be okay with intubation mechanical ventilation if needed just for surgery, for with which patient states that she is okay with intubation for surgery only if needed. Discussion had in the presence of patient's family who had no objection to patient's wishes. Time Spent: 16mins
[2019-08-01] MEDS: INSULIN LISPRO 100 UNIT/ML 3 ML VIAL SUBCUT SCH ×2 (17:32→20:59)
--- NOTE | 2019-08-01 18:03 | PDOC CONSULTATION ---
Consultation Consult Date: 08/01/19 Attending physician:: BRENNEN WOODSON Provider Consulted: DARIUS BOND Consult reason:: Right superior and inferior pubic rami fractures History of Present Illness Admission Date/PCP: 08/01/19 14:11 EDUARDO VALDEZ MD Patient complains of: Right hip pain History of Present Illness: MELANY STILL is a 74 year old female accompanied by her . The patient sustained a low-energy mechanical fall from a standing height earlier today. She presented to the emergency room complaining of right hip pain and the inability to ambulate. Radiographic examination demonstrated fractures of the right superior and inferior pubic rami. Past Medical History Cardiac Medical History: Reports: Hyperlipidema, Hypertension - MEDICATED, Heart Murmur Denies: Atrial Fibrillation, Congestive Heart Failure, Coronary Artery Disease, Myocardial Infarction Pulmonary Medical History: Denies: Asthma, Chronic Obstructive Pulmonary Disease (COPD) Neurological Medical History: Denies: Seizures Endocrine Medical History: Reports: Diabetes Mellitus Type 2 Renal/ Medical History: Denies: Chronic Kidney Disease GI Medical History: Reports: Cirrhosis, Hiatal Hernia Denies: Hepatitis Musculoskeltal Medical History: Reports: Arthritis Psychiatric Medical History: Reports: Depression Hematology: Reports: Anemia, Bleeding Tendencies Denies: Sickle Cell Disease Infectious Medical History: Denies: Hepatitis B, Hepatitis C Past Surgical History Past Surgical History: Reports: Cholecystectomy, Tonsillectomy Denies: Amputation, Mastectomy, Pacemaker Social History Lives with: Spouse/Significant other - Smoking Status: Former Smoker Electronic Cigarette use?: No Frequency of Alcohol Use: None Hx Recreational Drug Use: No Drugs: None Hx Prescription Drug Abuse: No - Advance Directive Resuscitation Status: Do Not Resuscitate - DNR/DNI confirmed by patient in the presence of her and granddaughter. Family History Family History: Hypertension Parental Family History Reviewed: Yes Children Family History Reviewed: Yes Sibling(s) Family History Reviewed.: Yes Medication/Allergy Home Medications: Canagliflozin [Invokana] 100 mg PO QAM 08/01/19 Insulin Glargine,Hum.rec.anlog [Lantus (Pyxis) Insulin 100 Unit/1 ml 10 ml] 30 units SUBCUT QPM 08/01/19 Insulin Lispro [Humalog Insulin (Lispro) 100 unit/mL] 0 unit SUBCUT .SLIDING SCALE 08/01/19 Levothyroxine Sodium [Synthroid 0.025 mg Tablet] 25 mcg PO Q6AM 08/01/19 Metformin HCl 500 mg PO BIDBS 08/01/19 Spironolactone [Aldactone] 50 mg PO DAILY 08/01/19 Allergies/Adverse Reactions: No Known Allergies Allergy (Verified 05/07/18 11:31) Physical Exam Vital Signs: Temp Pulse Resp BP Pulse Ox 98.8 F 98 17 104/81 100 08/01/19 14:58 08/01/19 14:58 08/01/19 14:58 08/01/19 14:58 08/01/19 14:58 Intake & Output 07/31/19 08/01/19 08/02/19 06:59 06:59 06:59 Weight 59.4 kg General appearance: PRESENT: no acute distress, cooperative, thin Head exam: PRESENT: atraumatic, normocephalic Eye exam: PRESENT: conjunctiva pink, EOMI, PERRLA. ABSENT: scleral icterus Ear exam: PRESENT: normal external ear exam Mouth exam: PRESENT: moist, tongue midline Neck exam: PRESENT: full ROM Respiratory exam: PRESENT: clear to auscultation felix. ABSENT: rales, rhonchi, wheezes Cardiovascular exam: PRESENT: RRR. ABSENT: diastolic murmur, rubs, systolic murmur Pulses: PRESENT: normal dorsalis pedis pul GI/Abdominal exam: PRESENT: normal bowel sounds, soft. ABSENT: distended, guarding, mass, organolmegaly, rebound, tenderness Rectal exam: PRESENT: deferred Extremities exam: PRESENT: full ROM. ABSENT: calf tenderness, clubbing, pedal edema Musculoskeletal exam: PRESENT: other - There is discomfort with palpation of the pubic ramus on the right. There is no discomfort with gentle rotation of the right hip. There is no pain with motion of the knee, ankle, or foot. Sensation is intact to touch. 2+ DP and 1+ PT pulses. Neurological exam: PRESENT: alert, awake, oriented to person, oriented to place, oriented to time, oriented to situation, CN II-XII grossly intact. ABSENT: motor sensory deficit Psychiatric exam: PRESENT: appropriate affect, normal mood. ABSENT: homicidal ideation, suicidal ideation Skin exam: PRESENT: dry, intact, warm. ABSENT: cyanosis, rash Results Laboratory Results: 08/01/19 12:50 08/01/19 12:50 08/01/19 08/01/19 12:50 12:50 WBC 3.9 L RBC 2.92 L Hgb 9.7 L Hct 28.0 L MCV 96 MCH 33.1 MCHC 34.5 RDW 15.6 H Plt Count 58 L Seg Neutrophils % 86.7 H Sodium 140.1 Potassium 4.6 Chloride 110 H Carbon Dioxide 22 Anion Gap 8 BUN 44 H Creatinine 0.99 Est GFR ( Amer) > 60 Glucose 158 H Calcium 9.2 Total Bilirubin 0.8 AST 44 H Alkaline Phosphatase 95 Total Protein 8.7 H Albumin 3.6 Impressions: Hip/Pelvis X-Ray 08/01/19 00:00 IMPRESSION: FRACTURES OF THE RIGHT SUPERIOR AND INFERIOR PUBIC RAMUS. NO EVIDENCE OF HIP FRACTURE. CHRONIC DEGENERATIVE CHANGES. Assessment & Plan - Diagnosis (1) Multiple closed stable fractures of ramus of right pubis Qualifiers: Encounter type: initial encounter Qualified Code(s): S32.591A - Other specified fracture of right pubis, initial encounter for closed fracture Is this a current diagnosis for this admission?: Yes - Time Time Spent: 30 to 50 Minutes Anticipated discharge: SNF - Plan Summary Plan Summary: The patient's clinical and radiographic examination is consistent with fractures of the superior and inferior pubic ramus on the right. I have explained to the patient and her that these type of fractures are treated nonoperatively. I have also explained that she may weight-bear as tolerated with an assistive device. I have placed an order for physical therapy to begin ambulation training with her. We have discussed that her ambulatory potential will gradually increase from her being able to bear essentially no weight to full weightbearing over the next several weeks. We discussed that I anticipate she will require a care home facility for several weeks until she is able to ambulate safely with a walker.
[2019-08-01] MEDS ORDERED: INSULIN GLARGINE,HUM.REC.ANLOG 1,000 UNIT/10 ML VIAL (PYX) SUBCUT ONE (20:55)
[2019-08-01] MEDS: OXYCODONE-ACETAMINOPHEN 5-325 MG TABLET PO PRN (20:58)
[2019-08-01] MEDS ORDERED: INSULIN GLARGINE,HUM.REC.ANLOG 1,000 UNIT/10 ML VIAL SUBCUT SCH (22:00)
--- NOTE | 2019-08-01 22:50 | EKG REPORT ---
SEVERITY:- ABNORMAL ECG - SINUS RHYTHM NONSPECIFIC T ABNORMALITIES, LATERAL LEADS : Confirmed by: Wendy Tejada MD 01-Aug-2019 22:49:23
[2019-08-02] MEDS: LEVOTHYROXINE SODIUM 0.025 MG TABLET PO SCH (05:14)
[2019-08-02 05:16] LABS: HEMATOCRIT 28.3 % (36.0-47.0); HEMOGLOBIN 9.6 g/dL (12.0-15.5); MEAN CORPUSCULAR HEMOGLOBIN 32.6 pg (27.0-33.4); MEAN CORPUSCULAR HGB CONC 33.8 g/dL (32.0-36.0); MEAN CORPUSCULAR VOLUME 96 fl (80-97); RED BLOOD COUNT 2.93 10^6/uL (3.72-5.28); RED CELL DISTRIBUTION WIDTH 16.1 % (11.5-14.0)
[2019-08-02 05:28] LABS: ANION GAP 6 (5-19); BLOOD UREA NITROGEN 41 mg/dL (7-20); CALCIUM 8.5 mg/dL (8.4-10.2); CARBON DIOXIDE 21 mmol/L (22-30); CHLORIDE 111 mmol/L (98-107); GLUCOSE 123 mg/dL (75-110); POTASSIUM 4.3 mmol/L (3.6-5.0)
[2019-08-02 06:02] LABS: PLATELET COUNT 53 10^3/uL (150-450); WHITE BLOOD COUNT 2.8 10^3/uL (4.0-10.5)
[2019-08-02] MEDS: INSULIN LISPRO 100 UNIT/ML 3 ML VIAL SUBCUT SCH ×4 (07:33→21:25)
[2019-08-02] MEDS: DOCUSATE SODIUM 100 MG CAPSULE PO SCH (09:21)
[2019-08-02] MEDS: OXYCODONE-ACETAMINOPHEN 5-325 MG TABLET PO PRN ×2 (09:21→21:26)
[2019-08-02] MEDS: SPIRONOLACTONE 25 MG TABLET PO SCH (09:21)
[2019-08-02] MEDS ORDERED: ENOXAPARIN SODIUM INJ 30 MG/0.3 ML DISP.SYRIN SUBCUT SCH (10:00)
[2019-08-02] MEDS ORDERED: INSULIN NPH (ISOPHANE), HUMAN 100 UNIT/ML 3 ML SUBCUT ONE (13:00)
--- NOTE | 2019-08-02 13:29 | PDOC PROGRESS REPORT ---
Subjective Progress Note for:: 08/02/19 Subjective:: Patient states her pain is very well controlled today. Denies any shortness of breath at this time. Denies other symptoms. Was unable to do any ambulation and has difficulty bearing weight on her leg. Plan to work physical therapy today. Reason For Visit: PUBIS RAMUS FRACTURE Physical Exam Vital Signs: Temp Pulse Resp BP Pulse Ox 98.1 F 103 H 16 112/49 L 98 08/02/19 11:30 08/02/19 11:30 08/02/19 11:30 08/02/19 11:30 08/02/19 11:30 Intake & Output 08/01/19 08/02/19 08/03/19 06:59 06:59 06:59 Intake Total 240 Output Total 500 Balance -260 Weight 60 kg General appearance: PRESENT: no acute distress, cooperative Neck exam: ABSENT: JVD Respiratory exam: PRESENT: clear to auscultation felix, unlabored. ABSENT: tachypnea, wheezes Cardiovascular exam: PRESENT: RRR, +S1, +S2. ABSENT: tachycardia GI/Abdominal exam: PRESENT: soft. ABSENT: rebound, rigid, tenderness Extremities exam: PRESENT: other - Pain and tenderness in the right hip posterior lateral region Neurological exam: PRESENT: alert, awake, oriented to person, oriented to place, oriented to time Results Laboratory Results: 08/02/19 04:40 08/02/19 04:40 08/01/19 08/01/19 08/02/19 12:50 12:50 04:40 WBC 3.9 L 2.8 L D RBC 2.92 L 2.93 L Hgb 9.7 L 9.6 L Hct 28.0 L 28.3 L MCV 96 96 MCH 33.1 32.6 MCHC 34.5 33.8 RDW 15.6 H 16.1 H Plt Count 58 L 53 L Seg Neutrophils % 86.7 H Sodium 140.1 Potassium 4.6 Chloride 110 H Carbon Dioxide 22 Anion Gap 8 BUN 44 H Creatinine 0.99 Est GFR ( Amer) > 60 Glucose 158 H Calcium 9.2 Total Bilirubin 0.8 AST 44 H Alkaline Phosphatase 95 Total Protein 8.7 H Albumin 3.6 08/02/19 04:40 WBC RBC Hgb Hct MCV MCH MCHC RDW Plt Count Seg Neutrophils % Sodium 137.9 Potassium 4.3 Chloride 111 H Carbon Dioxide 21 L Anion Gap 6 BUN 41 H Creatinine 1.04 Est GFR ( Amer) > 60 Glucose 123 H Calcium 8.5 Total Bilirubin AST Alkaline Phosphatase Total Protein Albumin Impressions: Hip/Pelvis X-Ray 08/01/19 00:00 IMPRESSION: FRACTURES OF THE RIGHT SUPERIOR AND INFERIOR PUBIC RAMUS. NO EVIDENCE OF HIP FRACTURE. CHRONIC DEGENERATIVE CHANGES. Assessment and Plan - Diagnosis (1) Multiple closed stable fractures of ramus of right pubis Qualifiers: Encounter type: initial encounter Qualified Code(s): S32.591A - Other spec ified fracture of right pubis, initial encounter for closed fracture Is this a current diagnosis for this admission?: Yes Plan: Reviewed x-ray image which shows fractures involving the inferior and superior right pubis ramus Dr. Patricio has evaluated him and recommends conservative/nonsurgical management. PT OT Pain control with Tylenol and oxycodone. DVT prophylaxis with SCDs. Held off on Lovenox given thrombocytopenia. Discharge planning consulted for evaluation for acute rehab or SNF (2) Cirrhosis of liver Qualifiers: Hepatic cirrhosis type: unspecified hepatic cirrhosis Ascites presence: unspecified Qualified Code(s): K74.60 - Unspecified cirrhosis of liver Is this a current diagnosis for this admission?: Yes Plan: Etiology unknown. 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 Continue spironolactone. Avoid hepatotoxic medications. (3) Chronic anemia Is this a current diagnosis for this admission?: Yes Plan: Patient states that she receives EPO about once a month outpatient. Hemoglobin seems to be stable at this time as compared to prior. (4) Diabetes mellitus type 2 in nonobese Is this a current diagnosis for this admission?: Yes Plan: Home regimen: Humalog sliding scale, Lantus 30 units nightly but varies depending on blood sugars, metformin and Invokana We will place patient on sliding scale insulin Lantus 25 units at night. Continue Accu-Cheks. (5) Thrombocytopenia Is this a current diagnosis for this admission?: Yes Plan: Secondary to cirrhosis. - Time Time Spent with patient: Less than 15 minutes
[2019-08-02] MEDS: METFORMIN HCL 500 MG TABLET PO SCH (17:24)
--- NOTE | 2019-08-02 18:05 | CDI QUERY ---
CDI Query CDI Review: Dear Provider: To better reflect your patients severity of illness, morbidity, and resource utilization Please specify and document in the Progress Notes and Discharge Summary if you are monitoring / treating / evaluating any of the following conditions: Query Clinical indicators Pancytopenia Pancytopenia due to ? Unable to determine Other 74 year old female with a history of type 2 diabetes mellitus, cirrhosis [does not know unknown etiology], hypothyroidism, chronic anemia on epo WBC 3.9 L 2.8 L D RBC 2.92 L 2.93 L Hgb 9.7 L 9.6 L Hct 28.0 L 28.3 L Plt Count 58 L The terms probable, suspected, likely, possible or still to be ruled out may be used if you are unable to determine the exact nature of a condition. Thank you, Clinical Documentation Physician Advisors ROSEMARY Washington RN, BSN RN Office [phone] Office [phone]
[2019-08-02] MEDS: INSULIN GLARGINE,HUM.REC.ANLOG 1,000 UNIT/10 ML VIAL SUBCUT SCH (21:26)
[2019-08-03] MEDS: LEVOTHYROXINE SODIUM 0.025 MG TABLET PO SCH (05:58)
[2019-08-03] MEDS: METFORMIN HCL 500 MG TABLET PO SCH ×2 (07:51→17:14)
[2019-08-03] MEDS: OXYCODONE-ACETAMINOPHEN 5-325 MG TABLET PO PRN ×2 (07:51→17:26)
[2019-08-03] MEDS: INSULIN LISPRO 100 UNIT/ML 3 ML VIAL SUBCUT SCH ×4 (07:52→21:53)
[2019-08-03] MEDS: SPIRONOLACTONE 25 MG TABLET PO SCH (11:37)
[2019-08-03] MEDS: DOCUSATE SODIUM 100 MG CAPSULE PO SCH (11:38)
--- NOTE | 2019-08-03 13:08 | PDOC PROGRESS REPORT ---
Subjective Progress Note for:: 08/03/19 Reason For Visit: PUBIS RAMUS FRACTURE 08/03/2019 Admitted for pelvic fracture Physical Exam Vital Signs: Temp Pulse Resp BP Pulse Ox 97.2 F 95 16 100/44 L 100 08/03/19 08:13 08/03/19 08:13 08/03/19 08:13 08/03/19 08:13 08/03/19 08:13 Intake & Output 08/02/19 08/03/19 08/04/19 06:59 06:59 06:59 Intake Total 240 720 Output Total 500 Balance -260 720 Weight 60 kg 58 kg General appearance: PRESENT: mild distress Respiratory exam: PRESENT: clear to auscultation felix. ABSENT: rales, rhonchi, wheezes Cardiovascular exam: PRESENT: RRR. ABSENT: diastolic murmur, rubs, systolic murmur Neurological exam: PRESENT: alert, awake, oriented to person, oriented to place, oriented to time, oriented to situation, CN II-XII grossly intact. ABSENT: motor sensory deficit Psychiatric exam: PRESENT: appropriate affect, normal mood. ABSENT: homicidal ideation, suicidal ideation Results Laboratory Results: 08/02/19 04:40 08/02/19 04:40 Impressions: Hip/Pelvis X-Ray 08/01/19 00:00 IMPRESSION: FRACTURES OF THE RIGHT SUPERIOR AND INFERIOR PUBIC RAMUS. NO EVIDENCE OF HIP FRACTURE. CHRONIC DEGENERATIVE CHANGES. Assessment and Plan - Diagnosis (1) Chronic anemia Is this a current diagnosis for this admission?: Yes (2) Cirrhosis of liver Qualifiers: Hepatic cirrhosis type: unspecified hepatic cirrhosis Ascites presence: unspecified Qualified Code(s): K74.60 - Unspecified cirrhosis of liver Is this a current diagnosis for this admission?: Yes (3) Fall Qualifiers: Encounter type: initial encounter Qualified Code(s): W19.XXXA - Unspecified fall, initial encounter Is this a current diagnosis for this admission?: Yes (4) Multiple closed stable fractures of ramus of right pubis Qualifiers: Encounter type: initial encounter Qualified Code(s): S32.591A - Other specified fracture of right pubis, initial encounter for closed fracture Is this a current diagnosis for this admission?: Yes (5) Thrombocytopenia Is this a current diagnosis for this admission?: Yes - Plan Summary Summary: 08/03/2019 Temperature 97.2 pulse 95 blood pressure 100/44 O2 sat 100% on room air Patient was admitted secondary to a fall with resulting pelvic fractures She has underlying cirrhosis of the liver as well as chronic anemia, diabetes, thrombocytopenia Patient currently being evaluated and treated by physical therapy as well as occupational therapy Patient being evaluated for placement issues Patient's pain is currently under good control with Percocet She is on metformin as well as Lantus Patient appears to be medically stable for discharge as soon as placement issues are resolved - Time Time Spent with patient: 25-34 minutes
[2019-08-03] MEDS: INSULIN GLARGINE,HUM.REC.ANLOG 1,000 UNIT/10 ML VIAL SUBCUT SCH (21:54)
[2019-08-04] MEDS: LEVOTHYROXINE SODIUM 0.025 MG TABLET PO SCH (05:57)
[2019-08-04] MEDS: INSULIN LISPRO 100 UNIT/ML 3 ML VIAL SUBCUT SCH ×4 (08:14→21:59)
[2019-08-04] MEDS: METFORMIN HCL 500 MG TABLET PO SCH ×2 (08:17→16:27)
[2019-08-04] MEDS: DOCUSATE SODIUM 100 MG CAPSULE PO SCH (10:17)
[2019-08-04] MEDS: SPIRONOLACTONE 25 MG TABLET PO SCH (10:17)
--- NOTE | 2019-08-04 12:42 | PDOC PROGRESS REPORT ---
Subjective Progress Note for:: 08/04/19 Reason For Visit: PUBIS RAMUS FRACTURE 08/04/2019 Pubic rami fracture, pain management Physical Exam Vital Signs: Temp Pulse Resp BP Pulse Ox 98.0 F 105 H 12 94/57 L 98 08/04/19 08:09 08/04/19 08:09 08/04/19 08:09 08/04/19 08:09 08/04/19 08:09 Intake & Output 08/03/19 08/04/19 08/05/19 06:59 06:59 06:59 Intake Total 720 1120 Balance 720 1120 Weight 58 kg 61.1 kg General appearance: PRESENT: mild distress Respiratory exam: PRESENT: clear to auscultation felix. ABSENT: rales, rhonchi, wheezes Cardiovascular exam: PRESENT: RRR. ABSENT: diastolic murmur, rubs, systolic murmur Neurological exam: PRESENT: alert, awake, oriented to person, oriented to place, oriented to time, oriented to situation, CN II-XII grossly intact. ABSENT: motor sensory deficit Psychiatric exam: PRESENT: appropriate affect, normal mood. ABSENT: homicidal ideation, suicidal ideation Results Laboratory Results: 08/02/19 04:40 08/02/19 04:40 Impressions: Hip/Pelvis X-Ray 08/01/19 00:00 IMPRESSION: FRACTURES OF THE RIGHT SUPERIOR AND INFERIOR PUBIC RAMUS. NO EVIDENCE OF HIP FRACTURE. CHRONIC DEGENERATIVE CHANGES. Assessment and Plan - Diagnosis (1) Chronic anemia Is this a current diagnosis for this admission?: Yes (2) Cirrhosis of liver Qualifiers: Hepatic cirrhosis type: unspecified hepatic cirrhosis Ascites presence: unspecified Qualified Code(s): K74.60 - Unspecified cirrhosis of liver Is this a current diagnosis for this admission?: Yes (3) Fall Qualifiers: Encounter type: initial encounter Qualified Code(s): W19.XXXA - Unspecified fall, initial encounter Is this a current diagnosis for this admission?: Yes (4) Multiple closed stable fractures of ramus of right pubis Qualifiers: Encounter type: initial encounter Qualified Code(s): S32.591A - Other specified fracture of right pubis, initial encounter for closed fracture Is this a current diagnosis for this admission?: Yes (5) Thrombocytopenia Is this a current diagnosis for this admission?: Yes - Plan Summary Summary: 08/03/2019 Temperature 97.2 pulse 95 blood pressure 100/44 O2 sat 100% on room air Patient was admitted secondary to a fall with resulting pelvic fractures She has underlying cirrhosis of the liver as well as chronic anemia, diabetes, thrombocytopenia Patient currently being evaluated and treated by physical therapy as well as occupational therapy Patient being evaluated for placement issues Patient's pain is currently under good control with Percocet She is on metformin as well as Lantus Patient appears to be medically stable for discharge as soon as placement issues are resolved 08/04/2019 Temperature 98.2 pulse 95 blood pressure 119/73 O2 sat 97% on room air Patient's applications for bed status have been sent out to snf facilities, currently waiting on her response Patient's blood sugars remain elevated We will increase her Lantus which is currently at 25 units nightly repeat labs in the morning Patient continues to work with physical therapy which recommends continued treatments and skilled rehabilitation acute setting after discharge - Time Time Spent with patient: 15-24 minutes
[2019-08-04] MEDS: OXYCODONE-ACETAMINOPHEN 5-325 MG TABLET PO PRN (15:43)
[2019-08-04] MEDS: INSULIN GLARGINE,HUM.REC.ANLOG 1,000 UNIT/10 ML VIAL SUBCUT SCH (21:59)
[2019-08-05] MEDS: LEVOTHYROXINE SODIUM 0.025 MG TABLET PO SCH (05:11)
[2019-08-05] MEDS: OXYCODONE-ACETAMINOPHEN 5-325 MG TABLET PO PRN ×3 (05:11→22:09)
[2019-08-05 05:47] LABS: ABSOLUTE EOSINOPHILS # (AUTO) 0.1 10^3/uL (0.0-0.6); ABSOLUTE LYMPHOCYTES (AUTO) 0.2 10^3/uL (0.5-4.7); ABSOLUTE MONOCYTES (AUTO) 0.3 10^3/uL (0.1-1.4); ABSOLUTE NEUT (AUTO) 2.3 10^3/uL (1.7-8.2); BASOPHILS % (AUTO) 0.5 % (0-2); EOSINOPHILS % (AUTO) 2.6 % (0-6); HEMATOCRIT 27.8 % (36.0-47.0); HEMOGLOBIN 9.3 g/dL (12.0-15.5); LYMPHOCYTES % (AUTO) 7.9 % (13-45); MEAN CORPUSCULAR HEMOGLOBIN 32.3 pg (27.0-33.4); MEAN CORPUSCULAR HGB CONC 33.5 g/dL (32.0-36.0); MEAN CORPUSCULAR VOLUME 96 fl (80-97); MONOCYTES % (AUTO) 9.4 % (3-13); RED BLOOD COUNT 2.88 10^6/uL (3.72-5.28); RED CELL DISTRIBUTION WIDTH 15.9 % (11.5-14.0); SEGMENTED NEUTROPHILS % (AUTO) 79.6 % (42-78); TOTAL CELLS COUNTED % (AUTO) 100 %; WHITE BLOOD COUNT 2.9 10^3/uL (4.0-10.5)
[2019-08-05 06:03] LABS: ANION GAP 8 (5-19); BLOOD UREA NITROGEN 33 mg/dL (7-20); CALCIUM 8.6 mg/dL (8.4-10.2); CARBON DIOXIDE 24 mmol/L (22-30); CHLORIDE 106 mmol/L (98-107); GLUCOSE 98 mg/dL (75-110); POTASSIUM 4.5 mmol/L (3.6-5.0)
[2019-08-05 06:14] LABS: PLATELET COUNT 61 10^3/uL (150-450)
[2019-08-05] MEDS: METFORMIN HCL 500 MG TABLET PO SCH ×2 (08:00→16:31)
[2019-08-05] MEDS: INSULIN LISPRO 100 UNIT/ML 3 ML VIAL SUBCUT SCH ×4 (08:00→21:59)
[2019-08-05] MEDS: SPIRONOLACTONE 25 MG TABLET PO SCH (10:20)
[2019-08-05] MEDS: DOCUSATE SODIUM 100 MG CAPSULE PO SCH (10:21)
--- NOTE | 2019-08-05 10:59 | PDOC PROGRESS REPORT ---
Subjective Progress Note for:: 08/05/19 Reason For Visit: PUBIS RAMUS FRACTURE 08/05/2019 Pubic rami fracture, pain management Physical Exam Vital Signs: Temp Pulse Resp BP Pulse Ox 98.2 F 94 19 95/51 L 99 08/05/19 07:58 08/05/19 07:58 08/05/19 07:58 08/05/19 07:58 08/05/19 07:58 Intake & Output 08/04/19 08/05/19 08/06/19 06:59 06:59 06:59 Intake Total 1120 1066 Balance 1120 1066 Weight 61.1 kg 61.7 kg General appearance: PRESENT: no acute distress - Patient is sitting up in the chair working with physical therapy daily Respiratory exam: PRESENT: clear to auscultation felix. ABSENT: rales, rhonchi, wheezes Cardiovascular exam: PRESENT: RRR. ABSENT: diastolic murmur, rubs, systolic murmur Neurological exam: PRESENT: alert, awake, oriented to person, oriented to place, oriented to time, oriented to situation, CN II-XII grossly intact. ABSENT: motor sensory deficit Psychiatric exam: PRESENT: appropriate affect, normal mood, other - Patient is in good spirits anticipating going to rehab. ABSENT: homicidal ideation, suicidal ideation Results Laboratory Results: 08/05/19 04:23 08/05/19 04:23 08/05/19 08/05/19 04:23 04:23 WBC 2.9 L RBC 2.88 L Hgb 9.3 L Hct 27.8 L MCV 96 MCH 32.3 MCHC 33.5 RDW 15.9 H Plt Count 61 L Seg Neutrophils % 79.6 H Sodium 137.9 Potassium 4.5 Chloride 106 Carbon Dioxide 24 Anion Gap 8 BUN 33 H Creatinine 1.12 Est GFR ( Amer) 57 L Glucose 98 Calcium 8.6 Impressions: Hip/Pelvis X-Ray 08/01/19 00:00 IMPRESSION: FRACTURES OF THE RIGHT SUPERIOR AND INFERIOR PUBIC RAMUS. NO EVIDENCE OF HIP FRACTURE. CHRONIC DEGENERATIVE CHANGES. Assessment and Plan - Diagnosis (1) Chronic anemia Is this a current diagnosis for this admission?: Yes (2) Cirrhosis of liver Qualifiers: Hepatic cirrhosis type: unspecified hepatic cirrhosis Ascites presence: unspecified Qualified Code(s): K74.60 - Unspecified cirrhosis of liver Is this a current diagnosis for this admission?: Yes (3) Fall Qualifiers: Encounter type: initial encounter Qualified Code(s): W19.XXXA - Unspecified fall, initial encounter Is this a current diagnosis for this admission?: Yes (4) Multiple closed stable fractures of ramus of right pubis Qualifiers: Encounter type: initial encounter Qualified Code(s): S32.591A - Other specified fracture of right pubis, initial encounter for closed fracture Is this a current diagnosis for this admission?: Yes (5) Thrombocytopenia Is this a current diagnosis for this admission?: Yes - Plan Summary Summary: 08/03/2019 Temperature 97.2 pulse 95 blood pressure 100/44 O2 sat 100% on room air Patient was admitted secondary to a fall with resulting pelvic fractures She has underlying cirrhosis of the liver as well as chronic anemia, diabetes, thrombocytopenia Patient currently being evaluated and treated by physical therapy as well as occupational therapy Patient being evaluated for placement issues Patient's pain is currently under good control with Percocet She is on metformin as well as Lantus Patient appears to be medically stable for discharge as soon as placement issues are resolved 08/04/2019 Temperature 98.2 pulse 95 blood pressure 119/73 O2 sat 97% on room air Patient's applications for bed status have been sent out to long-term facilities, currently waiting on her response Patient's blood sugars remain elevated We will increase her Lantus which is currently at 25 units nightly repeat labs in the morning Patient continues to work with physical therapy which recommends continued treatments and skilled rehabilitation acute setting after discharge 08/05/2019 Today I sat down and spoke with the patient concerning placement in her progress Discharge planning has put applications out to multiple facilities. Waiting to hear back from bed placement Vital signs are stable temperature 98.2 pulse 94 blood pressure 95/51, patient's blood pressure normally is 110/50, O2 sat 99% on room air CBC is stable, chemistry panel is stable, blood sugar appears to be slightly lower this morning after making changes to her Lantus Patient currently on 30 units nightly Patient is medically stable for discharge whenever a bed is available - Time Time Spent with patient: 25-34 minutes
[2019-08-05] MEDS: INSULIN GLARGINE,HUM.REC.ANLOG 1,000 UNIT/10 ML VIAL SUBCUT SCH (22:00)
[2019-08-06] MEDS: LEVOTHYROXINE SODIUM 0.025 MG TABLET PO SCH (05:26)
[2019-08-06] MEDS: METFORMIN HCL 500 MG TABLET PO SCH ×2 (08:17→17:32)
[2019-08-06] MEDS: OXYCODONE-ACETAMINOPHEN 5-325 MG TABLET PO PRN ×2 (08:22→18:49)
[2019-08-06] MEDS: INSULIN LISPRO 100 UNIT/ML 3 ML VIAL SUBCUT SCH ×4 (08:25→22:56)
[2019-08-06] MEDS: DOCUSATE SODIUM 100 MG CAPSULE PO SCH (09:25)
[2019-08-06] MEDS: SPIRONOLACTONE 25 MG TABLET PO SCH (09:25)
--- NOTE | 2019-08-06 11:19 | PDOC PROGRESS REPORT ---
Subjective Progress Note for:: 08/06/19 Reason For Visit: PUBIS RAMUS FRACTURE 08/06/2019 Pelvic fracture secondary to fall Physical Exam Vital Signs: Temp Pulse Resp BP Pulse Ox 97.8 F 100 16 104/44 L 98 08/06/19 07:47 08/06/19 07:47 08/06/19 07:47 08/06/19 07:47 08/06/19 07:47 Intake & Output 08/05/19 08/06/19 08/07/19 06:59 06:59 06:59 Intake Total 1066 1120 Balance 1066 1120 Weight 61.7 kg 61.3 kg 61.3 kg General appearance: PRESENT: no acute distress, other Respiratory exam: PRESENT: clear to auscultation felix. ABSENT: rales, rhonchi, wheezes Cardiovascular exam: PRESENT: RRR. ABSENT: diastolic murmur, rubs, systolic murmur Neurological exam: PRESENT: alert, awake, oriented to person, oriented to place, oriented to time, oriented to situation, CN II-XII grossly intact. ABSENT: motor sensory deficit Psychiatric exam: PRESENT: appropriate affect, normal mood. ABSENT: homicidal ideation, suicidal ideation Results Laboratory Results: 08/05/19 04:23 08/05/19 04:23 Impressions: Hip/Pelvis X-Ray 08/01/19 00:00 IMPRESSION: FRACTURES OF THE RIGHT SUPERIOR AND INFERIOR PUBIC RAMUS. NO EVIDENCE OF HIP FRACTURE. CHRONIC DEGENERATIVE CHANGES. Assessment and Plan - Diagnosis (1) Chronic anemia Is this a current diagnosis for this admission?: Yes (2) Cirrhosis of liver Qualifiers: Hepatic cirrhosis type: unspecified hepatic cirrhosis Ascites presence: unspecified Qualified Code(s): K74.60 - Unspecified cirrhosis of liver Is this a current diagnosis for this admission?: Yes (3) Fall Qualifiers: Encounter type: initial encounter Qualified Code(s): W19.XXXA - Unspecified fall, initial encounter Is this a current diagnosis for this admission?: Yes (4) Multiple closed stable fractures of ramus of right pubis Qualifiers: Encounter type: initial encounter Qualified Code(s): S32.591A - Other specified fracture of right pubis, initial encounter for closed fracture Is this a current diagnosis for this admission?: Yes (5) Thrombocytopenia Is this a current diagnosis for this admission?: Yes - Plan Summary Summary: 08/03/2019 Temperature 97.2 pulse 95 blood pressure 100/44 O2 sat 100% on room air Patient was admitted secondary to a fall with resulting pelvic fractures She has underlying cirrhosis of the liver as well as chronic anemia, diabetes, thrombocytopenia Patient currently being evaluated and treated by physical therapy as well as occupational therapy Patient being evaluated for placement issues Patient's pain is currently under good control with Percocet She is on metformin as well as Lantus Patient appears to be medically stable for discharge as soon as placement issues are resolved 08/04/2019 Temperature 98.2 pulse 95 blood pressure 119/73 O2 sat 97% on room air Patient's applications for bed status have been sent out to longterm facilities, currently waiting on her response Patient's blood sugars remain elevated We will increase her Lantus which is currently at 25 units nightly repeat labs in the morning Patient continues to work with physical therapy which recommends continued treatments and skilled rehabilitation acute setting after discharge 08/05/2019 Today I sat down and spoke with the patient concerning placement in her progress Discharge planning has put applications out to multiple facilities. Waiting to hear back from bed placement Vital signs are stable temperature 98.2 pulse 94 blood pressure 95/51, patient's blood pressure normally is 110/50, O2 sat 99% on room air CBC is stable, chemistry panel is stable, blood sugar appears to be slightly lower this morning after making changes to her Lantus Patient currently on 30 units nightly Patient is medically stable for discharge whenever a bed is available 08/06/2019 Patient's vital signs are all stable Recent labs are stable Patient is still receiving physical therapy daily. Waiting for bed placement - Time Time Spent with patient: 15-24 minutes
[2019-08-06] MEDS: INSULIN GLARGINE,HUM.REC.ANLOG 1,000 UNIT/10 ML VIAL SUBCUT SCH (22:56)
[2019-08-07] MEDS: LEVOTHYROXINE SODIUM 0.025 MG TABLET PO SCH (06:07)
[2019-08-07] MEDS: INSULIN LISPRO 100 UNIT/ML 3 ML VIAL SUBCUT SCH ×4 (08:45→22:07)
[2019-08-07] MEDS: SPIRONOLACTONE 25 MG TABLET PO SCH (10:23)
[2019-08-07] MEDS: METFORMIN HCL 500 MG TABLET PO SCH ×2 (10:23→18:14)
[2019-08-07] MEDS: DOCUSATE SODIUM 100 MG CAPSULE PO SCH (10:23)
--- NOTE | 2019-08-07 13:36 | PDOC PROGRESS REPORT ---
Subjective Progress Note for:: 08/07/19 Reason For Visit: PUBIS RAMUS FRACTURE 08/07/2019 Fractures of the right pubis ramus, chronic comorbidities cirrhosis of the liver, diabetes, thrombocytopenia Physical Exam Vital Signs: Temp Pulse Resp BP Pulse Ox 98.7 F 107 H 20 130/61 H 98 08/07/19 12:00 08/07/19 12:00 08/07/19 12:00 08/07/19 12:00 08/07/19 12:00 Intake & Output 08/06/19 08/07/19 08/08/19 06:59 06:59 07:59 Intake Total 1120 1070 Balance 1120 1070 Weight 61.3 kg 58.3 kg General appearance: PRESENT: no acute distress Respiratory exam: PRESENT: clear to auscultation felix. ABSENT: rales, rhonchi, wheezes Cardiovascular exam: PRESENT: RRR. ABSENT: diastolic murmur, rubs, systolic murmur Neurological exam: PRESENT: alert, awake, oriented to person, oriented to place, oriented to time, oriented to situation, CN II-XII grossly intact. ABSENT: motor sensory deficit Psychiatric exam: PRESENT: appropriate affect, normal mood. ABSENT: homicidal ideation, suicidal ideation Results Laboratory Results: 08/05/19 04:23 08/05/19 04:23 Impressions: Hip/Pelvis X-Ray 08/01/19 00:00 IMPRESSION: FRACTURES OF THE RIGHT SUPERIOR AND INFERIOR PUBIC RAMUS. NO EVIDENCE OF HIP FRACTURE. CHRONIC DEGENERATIVE CHANGES. Assessment and Plan - Diagnosis (1) Chronic anemia Is this a current diagnosis for this admission?: Yes (2) Cirrhosis of liver Qualifiers: Hepatic cirrhosis type: unspecified hepatic cirrhosis Ascites presence: unspecified Qualified Code(s): K74.60 - Unspecified cirrhosis of liver Is this a current diagnosis for this admission?: Yes (3) Fall Qualifiers: Encounter type: initial encounter Qualified Code(s): W19.XXXA - Unspecified fall, initial encounter Is this a current diagnosis for this admission?: Yes (4) Multiple closed stable fractures of ramus of right pubis Qualifiers: Encounter type: initial encounter Qualified Code(s): S32.591A - Other specified fracture of right pubis, initial encounter for closed fracture Is this a current diagnosis for this admission?: Yes (5) Thrombocytopenia Is this a current diagnosis for this admission?: Yes - Plan Summary Summary: 08/03/2019 Temperature 97.2 pulse 95 blood pressure 100/44 O2 sat 100% on room air Patient was admitted secondary to a fall with resulting pelvic fractures She has underlying cirrhosis of the liver as well as chronic anemia, diabetes, thrombocytopenia Patient currently being evaluated and treated by physical therapy as well as occ upational therapy Patient being evaluated for placement issues Patient's pain is currently under good control with Percocet She is on metformin as well as Lantus Patient appears to be medically stable for discharge as soon as placement issues are resolved 08/04/2019 Temperature 98.2 pulse 95 blood pressure 119/73 O2 sat 97% on room air Patient's applications for bed status have been sent out to [facility] facilities, currently waiting on her response Patient's blood sugars remain elevated We will increase her Lantus which is currently at 25 units nightly repeat labs in the morning Patient continues to work with physical therapy which recommends continued treatments and skilled rehabilitation acute setting after discharge 08/05/2019 Today I sat down and spoke with the patient concerning placement in her progress Discharge planning has put applications out to multiple facilities. Waiting to hear back from bed placement Vital signs are stable temperature 98.2 pulse 94 blood pressure 95/51, patient's blood pressure normally is 110/50, O2 sat 99% on room air CBC is stable, chemistry panel is stable, blood sugar appears to be slightly lower this morning after making changes to her Lantus Patient currently on 30 units nightly Patient is medically stable for discharge whenever a bed is available 08/06/2019 Patient's vital signs are all stable Recent labs are stable Patient is still receiving physical therapy daily. Waiting for bed placement 08/07/2019 Patient is up and ambulatory and being seen daily by physical therapy Patient is able to only tolerate limited weight shifting due to pain Physical therapy still recommends rehab in an acute setting to restore ambulation skills and improve independence and safety with transitions and minimize pain Applications have been sent to several facilities and waiting to hear from them - Time Time Spent with patient: 15-24 minutes
[2019-08-07] MEDS: INSULIN GLARGINE,HUM.REC.ANLOG 1,000 UNIT/10 ML VIAL SUBCUT SCH (22:06)
[2019-08-08] MEDS: LEVOTHYROXINE SODIUM 0.025 MG TABLET PO SCH (05:38)
[2019-08-08] MEDS: INSULIN LISPRO 100 UNIT/ML 3 ML VIAL SUBCUT SCH ×4 (08:05→21:23)
[2019-08-08] MEDS: METFORMIN HCL 500 MG TABLET PO SCH ×2 (10:45→18:13)
[2019-08-08] MEDS: SPIRONOLACTONE 25 MG TABLET PO SCH (10:45)
[2019-08-08] MEDS: DOCUSATE SODIUM 100 MG CAPSULE PO SCH ×2 (10:46→12:51)
--- NOTE | 2019-08-08 16:27 | PDOC PROGRESS REPORT ---
Subjective Progress Note for:: 08/08/19 Reason For Visit: PUBIS RAMUS FRACTURE 08/08/2019 Pelvic fracture with comorbidities cirrhosis of the liver, diabetes, thrombocytopenia Physical Exam Vital Signs: Temp Pulse Resp BP Pulse Ox 98.3 F 96 16 116/41 L 98 08/07/19 23:52 08/07/19 23:52 08/07/19 23:52 08/07/19 23:52 08/07/19 23:52 Intake & Output 08/07/19 08/08/19 08/09/19 05:59 06:59 06:59 Intake Total Balance Weight General appearance: PRESENT: no acute distress Respiratory exam: PRESENT: clear to auscultation felix. ABSENT: rales, rhonchi, wheezes Cardiovascular exam: PRESENT: RRR. ABSENT: diastolic murmur, rubs, systolic m urmur Neurological exam: PRESENT: alert, awake, oriented to person, oriented to place, oriented to time, oriented to situation, CN II-XII grossly intact. ABSENT: motor sensory deficit Psychiatric exam: PRESENT: appropriate affect, normal mood. ABSENT: homicidal ideation, suicidal ideation Results Laboratory Results: 08/05/19 04:23 08/05/19 04:23 Impressions: Hip/Pelvis X-Ray 08/01/19 00:00 IMPRESSION: FRACTURES OF THE RIGHT SUPERIOR AND INFERIOR PUBIC RAMUS. NO EVIDENCE OF HIP FRACTURE. CHRONIC DEGENERATIVE CHANGES. Assessment and Plan - Diagnosis (1) Chronic anemia Is this a current diagnosis for this admission?: Yes (2) Cirrhosis of liver Qualifiers: Hepatic cirrhosis type: unspecified hepatic cirrhosis Ascites presence: unspecified Qualified Code(s): K74.60 - Unspecified cirrhosis of liver Is this a current diagnosis for this admission?: Yes (3) Fall Qualifiers: Encounter type: initial encounter Qualified Code(s): W19.XXXA - Unspecified fall, initial encounter Is this a current diagnosis for this admission?: Yes (4) Multiple closed stable fractures of ramus of right pubis Qualifiers: Encounter type: initial encounter Qualified Code(s): S32.591A - Other specified fracture of right pubis, initial encounter for closed fracture Is this a current diagnosis for this admission?: Yes (5) Thrombocytopenia Is this a current diagnosis for this admission?: Yes - Plan Summary Summary: 08/03/2019 Temperature 97.2 pulse 95 blood pressure 100/44 O2 sat 100% on room air Patient was admitted secondary to a fall with resulting pelvic fractures She has underlying cirrhosis of the liver as well as chronic anemia, diabetes, thrombocytopenia Patient currently being evaluated and treated by physical therapy as well as occupational therapy Patient being evaluated for placement issues Patient's pain is currently under good control with Percocet She is on metformin as well as Lantus Patient appears to be medically stable for discharge as soon as placement issues are resolved 08/04/2019 Temperature 98.2 pulse 95 blood pressure 119/73 O2 sat 97% on room air Patient's applications for bed status have been sent out to correction facilities, currently waiting on her response Patient's blood sugars remain elevated We will increase her Lantus which is currently at 25 units nightly repeat labs in the morning Patient continues to work with physical therapy which recommends continued treatments and skilled rehabilitation acute setting after discharge 08/05/2019 Today I sat down and spoke with the patient concerning placement in her progress Discharge planning has put applications out to multiple facilities. Waiting to hear back from bed placement Vital signs are stable temperature 98.2 pulse 94 blood pressure 95/51, patient's blood pressure normally is 110/50, O2 sat 99% on room air CBC is stable, chemistry panel is stable, blood sugar appears to be slightly low er this morning after making changes to her Lantus Patient currently on 30 units nightly Patient is medically stable for discharge whenever a bed is available 08/06/2019 Patient's vital signs are all stable Recent labs are stable Patient is still receiving physical therapy daily. Waiting for bed placement 08/07/2019 Patient is up and ambulatory and being seen daily by physical therapy Patient is able to only tolerate limited weight shifting due to pain Physical therapy still recommends rehab in an acute setting to restore ambulation skills and improve independence and safety with transitions and minimize pain Applications have been sent to several facilities and waiting to hear from them 08/08/2019 Hopefully tomorrow we will hear from several of the facilities that we have requested bed placement with Medically patient is stable for discharge Labs are ordered for the morning - Time Time Spent with patient: 15-24 minutes
[2019-08-08 16:45] LABS: APPEARANCE,URINE SLIGHTLY-CLOUDY; BILIRUBIN,URINE NEGATIVE (NEGATIVE); COLOR,URINE YELLOW; GLUCOSE, URINE NEGATIVE (NEGATIVE); KETONES,URINE NEGATIVE (NEGATIVE); LEUKOCYTE ESTERASE,URINE MODERATE (NEGATIVE); NITRITE,URINE POSITIVE (NEGATIVE); PROTEIN,URINE NEGATIVE (NEGATIVE); URINE SPECIFIC GRAVITY 1.015; UROBILINOGEN,URINE NEGATIVE mg/dL (<2.0)
[2019-08-08] MEDS ORDERED: CEPHALEXIN 250 MG CAPSULE PO ONE (17:48)
[2019-08-08] MEDS ORDERED: CEPHALEXIN 250 MG CAPSULE ONE (18:39)
[2019-08-08] MEDS: INSULIN GLARGINE,HUM.REC.ANLOG 1,000 UNIT/10 ML VIAL SUBCUT SCH (21:23)
[2019-08-09] MEDS: OXYCODONE-ACETAMINOPHEN 5-325 MG TABLET PO PRN (01:23)
[2019-08-09] MEDS: LEVOTHYROXINE SODIUM 0.025 MG TABLET PO SCH (06:28)
[2019-08-09 06:33] LABS: ABSOLUTE EOSINOPHILS # (AUTO) 0.1 10^3/uL (0.0-0.6); ABSOLUTE LYMPHOCYTES (AUTO) 0.2 10^3/uL (0.5-4.7); ABSOLUTE MONOCYTES (AUTO) 0.3 10^3/uL (0.1-1.4); ABSOLUTE NEUT (AUTO) 3.4 10^3/uL (1.7-8.2); BASOPHILS % (AUTO) 0.4 % (0-2); EOSINOPHILS % (AUTO) 2.1 % (0-6); HEMATOCRIT 28.4 % (36.0-47.0); HEMOGLOBIN 9.5 g/dL (12.0-15.5); LYMPHOCYTES % (AUTO) 5.4 % (13-45); MEAN CORPUSCULAR HEMOGLOBIN 31.9 pg (27.0-33.4); MEAN CORPUSCULAR HGB CONC 33.3 g/dL (32.0-36.0); MEAN CORPUSCULAR VOLUME 96 fl (80-97); MONOCYTES % (AUTO) 6.9 % (3-13); RED BLOOD COUNT 2.96 10^6/uL (3.72-5.28); RED CELL DISTRIBUTION WIDTH 16.1 % (11.5-14.0); SEGMENTED NEUTROPHILS % (AUTO) 85.2 % (42-78); TOTAL CELLS COUNTED % (AUTO) 100 %
[2019-08-09 06:35] LABS: ANION GAP 6 (5-19); BLOOD UREA NITROGEN 35 mg/dL (7-20); CALCIUM 9.1 mg/dL (8.4-10.2); CARBON DIOXIDE 26 mmol/L (22-30); CHLORIDE 107 mmol/L (98-107); GLUCOSE 123 mg/dL (75-110); POTASSIUM 5.2 mmol/L (3.6-5.0)
[2019-08-09 07:20] LABS: PLATELET COUNT 74 10^3/uL (150-450)
[2019-08-09] MEDS: METFORMIN HCL 500 MG TABLET PO SCH ×2 (08:29→17:35)
[2019-08-09] MEDS: INSULIN LISPRO 100 UNIT/ML 3 ML VIAL SUBCUT SCH ×4 (08:32→22:01)
[2019-08-09] MEDS: SPIRONOLACTONE 25 MG TABLET PO SCH (13:01)
[2019-08-09] MEDS: DOCUSATE SODIUM 100 MG CAPSULE PO SCH (13:01)
[2019-08-09] MEDS: INSULIN GLARGINE,HUM.REC.ANLOG 1,000 UNIT/10 ML VIAL SUBCUT SCH (22:01)
[2019-08-10] MEDS: LEVOTHYROXINE SODIUM 0.025 MG TABLET PO SCH (06:25)
[2019-08-10] MEDS: INSULIN LISPRO 100 UNIT/ML 3 ML VIAL SUBCUT SCH ×4 (08:15→21:28)
[2019-08-10] MEDS: METFORMIN HCL 500 MG TABLET PO SCH ×2 (08:39→16:37)
[2019-08-10] MEDS: DOCUSATE SODIUM 100 MG CAPSULE PO SCH (10:03)
[2019-08-10] MEDS: SPIRONOLACTONE 25 MG TABLET PO SCH (10:03)
--- NOTE | 2019-08-10 11:38 | PDOC PROGRESS REPORT ---
Subjective Progress Note for:: 08/10/19 Subjective:: 74 year old female with a history of type 2 diabetes mellitus, cirrhosis [does not know unknown etiology], hypothyroidism, chronic anemia on epo, who was brought into the hospital by family after experiencing fall. Apparently patient was walking in the dark today when she experienced a mechanical fall. Denies any head impact. Denies any headache at this time. However patient complains of significant pain in her right hip. Denies any loss of consciousness. Also denies hitting her neck anywhere. In the emergency department, patient was noted to have a fracture of her right superior and inferior pubis ramus and subsequently Dr. Patricio was consulted who recommends admission and he will evaluate patient. Patient at this time complains of 8/10 pain in her right hip when she moves but if she lays steady the pain is only mild. [id number]-old female with history of type 2 diabetes mellitus, cirrhosis of unknown etiology, hypothyroidism, chronic anemia and Epogen admitted after a fall. Found to have a pubis ramus fracture. On conservative management. Waiting for rehab placement. No acute events in the last 24 hours. Denies any problems. Reason For Visit: PUBIS RAMUS FRACTURE Physical Exam Vital Signs: Temp Pulse Resp BP Pulse Ox 97.8 F 93 16 83/34 L 99 08/10/19 07:27 08/10/19 07:27 08/10/19 07:27 08/10/19 07:27 08/10/19 07:27 Intake & Output 08/09/19 08/10/19 08/11/19 06:59 06:59 06:59 Intake Total 750 924 Output Total 60 400 Balance 690 524 Weight 43.8 kg 56.2 kg General appearance: PRESENT: no acute distress, thin Head exam: PRESENT: atraumatic Eye exam: PRESENT: PERRLA Ear exam: PRESENT: normal external ear exam Mouth exam: PRESENT: neck supple Neck exam: ABSENT: carotid bruit, JVD, lymphadenopathy, thyromegaly Respiratory exam: PRESENT: decreased breath sounds Cardiovascular exam: PRESENT: RRR. ABSENT: diastolic murmur, rubs, systolic murmur Pulses: PRESENT: normal dorsalis pedis pul GI/Abdominal exam: PRESENT: normal bowel sounds, soft. ABSENT: distended, guarding, mass, organolmegaly, rebound, tenderness Rectal exam: PRESENT: deferred Extremities exam: PRESENT: full ROM. ABSENT: calf tenderness, clubbing, pedal edema Neurological exam: PRESENT: alert, awake, oriented to person, oriented to place, oriented to time, oriented to situation, CN II-XII grossly intact. ABSENT: motor sensory deficit Psychiatric exam: PRESENT: appropriate affect, normal mood. ABSENT: homicidal ideation, suicidal ideation Results Laboratory Results: 08/09/19 05:12 08/09/19 05:12 Impressions: Hip/Pelvis X-Ray 08/01/19 00:00 IMPRESSION: FRACTURES OF THE RIGHT SUPERIOR AND INFERIOR PUBIC RAMUS. NO EVIDENCE OF HIP FRACTURE. CHRONIC DEGENERATIVE CHANGES. Assessment and Plan - Diagnosis (1) Chronic anemia Is this a current diagnosis for this admission?: No Plan: Patient states that she receives EPO about once a month outpatient. Hemoglobin seems to be stable at this time as compared to prior. 08/10/2019-patient has history of anemia of chronic disease hemoglobin 9.5. Patient is receiving up as an outpatient. (2) Cirrhosis of liver Qualifiers: Hepatic cirrhosis type: unspecified hepatic cirrhosis Ascites presence: unspecified Qualified Code(s): K74.60 - Unspecified cirrhosis of liver Is this a current diagnosis for this admission?: No Plan: Etiology unknown. 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 Continue spironolactone. Avoid hepatotoxic medications. 08/10/2019-patient has history of cirrhosis of the liver. Etiology unknown. Plan is to continue spironolactone at this time. (3) Fall Qualifiers: Encounter type: initial encounter Qualified Code(s): W19.XXXA - Unspecified fall, initial encounter Is this a current diagnosis for this admission?: Yes (4) Multiple closed stable fractures of ramus of right pubis Qualifiers: Encounter type: initial encounter Qualified Code(s): S32.591A - Other specified fracture of right pubis, initial encounter for closed fracture Is this a current diagnosis for this admission?: Yes Plan: Reviewed x-ray image which shows fractures involving the inferior and superior right pubis ramus Dr. Patricio has evaluated him and recommends conservative/nonsurgical management. PT OT Pain control with Tylenol and oxycodone. DVT prophylaxis with SCDs. Held off on Lovenox given thrombocytopenia. Discharge planning consulted for evaluation for acute rehab or SNF 08/10/2019-patient admitted with right pubis ramus fracture. And conservative management. Patient receiving pain management. Not on Lovenox because of thrombocytopenia. Waiting for correction facility placement. (5) Thrombocytopenia Is this a current diagnosis for this admission?: Yes Plan: Secondary to cirrhosis. - Plan Summary Summary: 08/03/2019 Temperature 97.2 pulse 95 blood pressure 100/44 O2 sat 100% on room air Patient was admitted secondary to a fall with resulting pelvic fractures She has underlying cirrhosis of the liver as well as chronic anemia, diabetes, thrombocytopenia Patient currently being evaluated and treated by physical therapy as well as occupational therapy Patient being evaluated for placement issues Patient's pain is currently under good control with Percocet She is on metformin as well as Lantus Patient appears to be medically stable for discharge as soon as placement issues are resolved 08/04/2019 Temperature 98.2 pulse 95 blood pressure 119/73 O2 sat 97% on room air Patient's applications for bed status have been sent out to correction facilities, currently waiting on her response Patient's blood sugars remain elevated We will increase her Lantus which is currently at 25 units nightly repeat labs in the morning Patient continues to work with physical therapy which recommends continued eula atments and skilled rehabilitation acute setting after discharge 08/05/2019 Today I sat down and spoke with the patient concerning placement in her progress Discharge planning has put applications out to multiple facilities. Waiting to hear back from bed placement Vital signs are stable temperature 98.2 pulse 94 blood pressure 95/51, patient's blood pressure normally is 110/50, O2 sat 99% on room air CBC is stable, chemistry panel is stable, blood sugar appears to be slightly lower this morning after making changes to her Lantus Patient currently on 30 units nightly Patient is medically stable for discharge whenever a bed is available 08/06/2019 Patient's vital signs are all stable Recent labs are stable Patient is still receiving physical therapy daily. Waiting for bed placement 08/07/2019 Patient is up and ambulatory and being seen daily by physical therapy Patient is able to only tolerate limited weight shifting due to pain Physical therapy still recommends rehab in an acute setting to restore ambulation skills and improve independence and safety with transitions and minimize pain Applications have been sent to several facilities and waiting to hear from them 08/08/2019 Hopefully tomorrow we will hear from several of the facilities that we have requested bed placement with Medically patient is stable for discharge Labs are ordered for the morning
[2019-08-10] MEDS: INSULIN GLARGINE,HUM.REC.ANLOG 1,000 UNIT/10 ML VIAL SUBCUT SCH (21:27)
[2019-08-11] MEDS: LEVOTHYROXINE SODIUM 0.025 MG TABLET PO SCH (05:21)
[2019-08-11] MEDS: INSULIN LISPRO 100 UNIT/ML 3 ML VIAL SUBCUT SCH ×4 (08:00→22:13)
[2019-08-11] MEDS: SPIRONOLACTONE 25 MG TABLET PO SCH (10:35)
[2019-08-11] MEDS: METFORMIN HCL 500 MG TABLET PO SCH (10:35)
[2019-08-11] MEDS: DOCUSATE SODIUM 100 MG CAPSULE PO SCH (10:36)
--- NOTE | 2019-08-11 11:33 | PDOC PROGRESS REPORT ---
Subjective Progress Note for:: 08/11/19 Subjective:: 74 year old female with a history of type 2 diabetes mellitus, cirrhosis [does not know unknown etiology], hypothyroidism, chronic anemia on epo, who was brought into the hospital by family after experiencing fall. Apparently patient was walking in the dark today when she experienced a mechanical fall. Denies any head impact. Denies any headache at this time. However patient complains of significant pain in her right hip. Denies any loss of consciousness. Also denies hitting her neck anywhere. In the emergency department, patient was noted to have a fracture of her right superior and inferior pubis ramus and subsequently Dr. Patricio was consulted who recommends admission and he will evaluate patient. Patient at this time complains of 8/10 pain in her right hip when she moves but if she lays steady the pain is only mild. 08/10/[id number]-cdws-old female with history of type 2 diabetes mellitus, cirrhosis of unknown etiology, hypothyroidism, chronic anemia and Epogen admitted after a fall. Found to have a pubis ramus fracture. On conservative management. Waiting for rehab placement. No acute events in the last 24 hours. Denies any problems. 08/11/1990-20-gyll-old female admitted with a fall found to have a pubic ramus fracture. On conservative management. Waiting for placement. Denies any problems. Blood pressures are running low it is around 100/60 to hold spironolactone at this time. Reason For Visit: PUBIS RAMUS FRACTURE Physical Exam Vital Signs: Temp Pulse Resp BP Pulse Ox 97.7 F 94 16 105/52 L 98 08/11/19 07:35 08/11/19 07:35 08/11/19 07:35 08/11/19 07:35 08/11/19 07:35 Intake & Output 08/10/19 08/11/19 08/12/19 06:59 06:59 06:59 Intake Total 924 938 Output Total 400 550 Balance 524 388 Weight 56.2 kg 57 kg General appearance: PRESENT: no acute distress Head exam: PRESENT: atraumatic Eye exam: PRESENT: PERRLA Mouth exam: PRESENT: moist, tongue midline Teeth exam: PRESENT: poor dentation Neck exam: ABSENT: carotid bruit, JVD, lymphadenopathy, thyromegaly Respiratory exam: PRESENT: decreased breath sounds Cardiovascular exam: PRESENT: RRR. ABSENT: diastolic murmur, rubs, systolic murmur Pulses: PRESENT: normal dorsalis pedis pul GI/Abdominal exam: PRESENT: normal bowel sounds, soft. ABSENT: distended, guarding, mass, organolmegaly, rebound, tenderness Rectal exam: PRESENT: deferred Extremities exam: PRESENT: full ROM. ABSENT: calf tenderness, clubbing, pedal edema Neurological exam: PRESENT: alert, awake, oriented to person, oriented to place, oriented to time, oriented to situation, CN II-XII grossly intact. ABSENT: motor sensory deficit Psychiatric exam: PRESENT: appropriate affect, normal mood. ABSENT: homicidal ideation, suicidal ideation Results Laboratory Results: 08/09/19 05:12 08/09/19 05:12 08/10/19 17:30 Stool Occult Blood POSITIVE Impressions: Hip/Pelvis X-Ray 08/01/19 00:00 IMPRESSION: FRACTURES OF THE RIGHT SUPERIOR AND INFERIOR PUBIC RAMUS. NO EVIDENCE OF HIP FRACTURE. CHRONIC DEGENERATIVE CHANGES. Assessment and Plan - Diagnosis (1) Chronic anemia Is this a current diagnosis for this admission?: No Plan: Patient states that she receives EPO about once a month outpatient. Hemoglobin seems to be stable at this time as compared to prior. 08/10/2019-patient has history of anemia of chronic disease hemoglobin 9.5. Patient is receiving up as an outpatient. (2) Cirrhosis of liver Qualifiers: Hepatic cirrhosis type: unspecified hepatic cirrhosis Ascites presence: unspecified Qualified Code(s): K74.60 - Unspecified cirrhosis of liver Is this a current diagnosis for this admission?: No Plan: Etiology unknown. 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 Continue spironolactone. Avoid hepatotoxic medications. 08/10/2019-patient has history of cirrhosis of the liver. Etiology unknown. Plan is to continue spironolactone at this time. 08/11/19-nurse is concerned about low blood pressures. Plan to hold Spirono lactone for now. (3) Fall Qualifiers: Encounter type: initial encounter Qualified Code(s): W19.XXXA - Unspecified fall, initial encounter Is this a current diagnosis for this admission?: Yes Plan: 1120-patient admitted after fall found to have a pubis ramus fracture on co nservative management awaiting for rehab placement. (4) Multiple closed stable fractures of ramus of right pubis Qualifiers: Encounter type: initial encounter Qualified Code(s): S32.591A - Other specified fracture of right pubis, initial encounter for closed fracture Is this a current diagnosis for this admission?: Yes Plan: Reviewed x-ray image which shows fractures involving the inferior and superior right pubis ramus Dr. Patricio has evaluated him and recommends conservative/nonsurgical management. PT OT Pain control with Tylenol and oxycodone. DVT prophylaxis with SCDs. Held off on Lovenox given thrombocytopenia. Discharge planning consulted for evaluation for acute rehab or SNF 08/10/2019-patient admitted with right pubis ramus fracture. And conservative management. Patient receiving pain management. Not on Lovenox because of thrombocytopenia. Waiting for long-term facility placement. (5) Thrombocytopenia Is this a current diagnosis for this admission?: Yes Plan: Secondary to cirrhosis. - Plan Summary Summary: 08/03/2019 Temperature 97.2 pulse 95 blood pressure 100/44 O2 sat 100% on room air Patient was admitted secondary to a fall with resulting pelvic fractures She has underlying cirrhosis of the liver as well as chronic anemia, diabetes, thrombocytopenia Patient currently being evaluated and treated by physical therapy as well as occupational therapy Patient being evaluated for placement issues Patient's pain is currently under good control with Percocet She is on metformin as well as Lantus Patient appears to be medically stable for discharge as soon as placement issues are resolved 08/04/2019 Temperature 98.2 pulse 95 blood pressure 119/73 O2 sat 97% on room air Patient's applications for bed status have been sent out to long-term facilities, currently waiting on her response Patient's blood sugars remain elevated We will increase her Lantus which is currently at 25 units nightly repeat labs in the morning Patient continues to work with physical therapy which recommends continued treatments and skilled rehabilitation acute setting after discharge 08/05/2019 Today I sat down and spoke with the patient concerning placement in her progress Discharge planning has put applications out to multiple facilities. Waiting to hear back from bed placement Vital signs are stable temperature 98.2 pulse 94 blood pressure 95/51, patient's blood pressure normally is 110/50, O2 sat 99% on room air CBC is stable, chemistry panel is stable, blood sugar appears to be slightly lower this morning after making changes to her Lantus Patient currently on 30 units nightly Patient is medically stable for discharge whenever a bed is available 08/06/2019 Patient's vital signs are all stable Recent labs are stable Patient is still receiving physical therapy daily. Waiting for bed placement 08/07/2019 Patient is up and ambulatory and being seen daily by physical therapy Patient is able to only tolerate limited weight shifting due to pain Physical therapy still recommends rehab in an acute setting to restore a mbulation skills and improve independence and safety with transitions and minimize pain Applications have been sent to several facilities and waiting to hear from them 08/08/2019 Hopefully tomorrow we will hear from several of the facilities that we have requested bed placement with Medically patient is stable for discharge Labs are ordered for the morning
[2019-08-11] MEDS: OXYCODONE-ACETAMINOPHEN 5-325 MG TABLET PO PRN ×2 (13:10→22:15)
[2019-08-11] MEDS: INSULIN GLARGINE,HUM.REC.ANLOG 1,000 UNIT/10 ML VIAL SUBCUT SCH (22:15)
[2019-08-12 05:36] LABS: ABSOLUTE EOSINOPHILS # (AUTO) 0.1 10^3/uL (0.0-0.6); ABSOLUTE LYMPHOCYTES (AUTO) 0.2 10^3/uL (0.5-4.7); ABSOLUTE MONOCYTES (AUTO) 0.2 10^3/uL (0.1-1.4); ABSOLUTE NEUT (AUTO) 1.6 10^3/uL (1.7-8.2); BASOPHILS % (AUTO) 1.1 % (0-2); EOSINOPHILS % (AUTO) 4.2 % (0-6); HEMATOCRIT 25.6 % (36.0-47.0); HEMOGLOBIN 8.8 g/dL (12.0-15.5); LYMPHOCYTES % (AUTO) 11.3 % (13-45); MEAN CORPUSCULAR HEMOGLOBIN 32.8 pg (27.0-33.4); MEAN CORPUSCULAR HGB CONC 34.4 g/dL (32.0-36.0); MEAN CORPUSCULAR VOLUME 95 fl (80-97); MONOCYTES % (AUTO) 8.9 % (3-13); RED BLOOD COUNT 2.68 10^6/uL (3.72-5.28); RED CELL DISTRIBUTION WIDTH 15.9 % (11.5-14.0); SEGMENTED NEUTROPHILS % (AUTO) 74.5 % (42-78); TOTAL CELLS COUNTED % (AUTO) 100 %
[2019-08-12 05:47] LABS: ALBUMIN 3.2 g/dL (3.5-5.0); ALKALINE PHOSPHATASE 142 U/L (38-126); ANION GAP 9 (5-19); ASPARTATE AMINO TRANSFERASE 31 U/L (14-36); BILIRUBIN,DIRECT 0.3 mg/dL (0.0-0.4); BILIRUBIN,TOTAL 0.7 mg/dL (0.2-1.3); BLOOD UREA NITROGEN 33 mg/dL (7-20); CALCIUM 8.8 mg/dL (8.4-10.2); CARBON DIOXIDE 25 mmol/L (22-30); CHLORIDE 106 mmol/L (98-107); GLUCOSE 124 mg/dL (75-110); POTASSIUM 4.3 mmol/L (3.6-5.0); TOTAL PROTEIN 8.2 g/dL (6.3-8.2)
[2019-08-12] MEDS: OXYCODONE-ACETAMINOPHEN 5-325 MG TABLET PO PRN ×2 (05:54→18:33)
[2019-08-12] MEDS: LEVOTHYROXINE SODIUM 0.025 MG TABLET PO SCH (05:54)
[2019-08-12 06:09] LABS: PLATELET COUNT 69 10^3/uL (150-450); WHITE BLOOD COUNT 2.2 10^3/uL (4.0-10.5)
[2019-08-12] MEDS: INSULIN LISPRO 100 UNIT/ML 3 ML VIAL SUBCUT SCH ×4 (08:37→21:48)
[2019-08-12] MEDS: DOCUSATE SODIUM 100 MG CAPSULE PO SCH (09:22)
--- NOTE | 2019-08-12 11:22 | PDOC PROGRESS REPORT ---
Subjective Progress Note for:: 08/12/19 Subjective:: 74 year old female with a history of type 2 diabetes mellitus, cirrhosis [does not know unknown etiology], hypothyroidism, chronic anemia on epo, who was brought into the hospital by family after experiencing fall. Apparently patient was walking in the dark today when she experienced a mechanical fall. Denies any head impact. Denies any headache at this time. However patient complains of significant pain in her right hip. Denies any loss of consciousness. Also denies hitting her neck anywhere. In the emergency department, patient was noted to have a fracture of her right superior and inferior pubis ramus and subsequently Dr. Patricio was consulted who recommends admission and he will evaluate patient. Patient at this time complains of 8/10 pain in her right hip when she moves but if she lays steady the pain is only mild. 08/10/[id number]-borx-old female with history of type 2 diabetes mellitus, cirrhosis of unknown etiology, hypothyroidism, chronic anemia and Epogen admitted after a fall. Found to have a pubis ramus fracture. On conservative management. Waiting for rehab placement. No acute events in the last 24 hours. Denies any problems. 08/11/1913-36-fpif-old female admitted with a fall found to have a pubic ramus fracture. On conservative management. Waiting for placement. Denies any problems. Blood pressures are running low it is around 100/60 to hold spironolactone at this time. 08/12/1978-82-iamu-old female with history of diabetes mellitus, cirrhosis of the liver of unknown etiology, hypothyroidism, chronic anemia admitted after a fall. Found to have a pubis ramus fracture. Patient waiting for cement. Comfortable in the chair communicating well. Denies any problems. Reason For Visit: PUBIS RAMUS FRACTURE Physical Exam Vital Signs: Temp Pulse Resp BP Pulse Ox 98.0 F 85 17 103/47 L 100 08/11/19 23:48 08/12/19 07:54 08/12/19 07:54 08/12/19 07:54 08/12/19 07:54 Intake & Output 08/11/19 08/12/19 08/13/19 06:59 06:59 06:59 Intake Total 938 697 Output Total 550 150 Balance 388 547 Weight 57 kg 57.3 kg General appearance: PRESENT: no acute distress, thin Head exam: PRESENT: atraumatic Eye exam: PRESENT: PERRLA Mouth exam: PRESENT: moist, tongue midline Teeth exam: PRESENT: dental tenderness Neck exam: ABSENT: carotid bruit, JVD, lymphadenopathy, thyromegaly Respiratory exam: PRESENT: decreased breath sounds Cardiovascular exam: PRESENT: RRR. ABSENT: diastolic murmur, rubs, systolic murmur Pulses: PRESENT: normal dorsalis pedis pul GI/Abdominal exam: PRESENT: normal bowel sounds, soft. ABSENT: distended, guarding, mass, organolmegaly, rebound, tenderness Rectal exam: PRESENT: deferred Extremities exam: PRESENT: full ROM. ABSENT: calf tenderness, clubbing, pedal edema Neurological exam: PRESENT: alert, awake, oriented to person, oriented to place, oriented to time, oriented to situation, CN II-XII grossly intact. ABSENT: motor sensory deficit Psychiatric exam: PRESENT: appropriate affect, normal mood. ABSENT: homicidal ideation, suicidal ideation Skin exam: PRESENT: dry, intact, warm. ABSENT: cyanosis, rash Results Laboratory Results: 08/12/19 04:20 08/12/19 04:20 08/12/19 08/12/19 04:20 04:20 WBC 2.2 L D RBC 2.68 L Hgb 8.8 L Hct 25.6 L MCV 95 MCH 32.8 MCHC 34.4 RDW 15.9 H Plt Count 69 L Seg Neutrophils % 74.5 Sodium 139.6 Potassium 4.3 Chloride 106 Carbon Dioxide 25 Anion Gap 9 BUN 33 H Creatinine 1.02 Est GFR ( Amer) > 60 Glucose 124 H Calcium 8.8 Magnesium 2.0 Total Bilirubin 0.7 AST 31 Alkaline Phosphatase 142 H Total Protein 8.2 Albumin 3.2 L 08/10/19 23:40 Clean Catch Midstream Urine Culture - Final Enterobacter Cloacae Impressions: Hip/Pelvis X-Ray 08/01/19 00:00 IMPRESSION: FRACTURES OF THE RIGHT SUPERIOR AND INFERIOR PUBIC RAMUS. NO EVIDENCE OF HIP FRACTURE. CHRONIC DEGENERATIVE CHANGES. Assessment and Plan - Diagnosis (1) Chronic anemia Is this a current diagnosis for this admission?: No Plan: Patient states that she receives EPO about once a month outpatient. Hemoglobin seems to be stable at this time as compared to prior. 08/10/2019-patient has history of anemia of chronic disease hemoglobin 9.5. Patient is receiving up as an outpatient. (2) Cirrhosis of liver Qualifiers: Hepatic cirrhosis type: unspecified hepatic cirrhosis Ascites presence: unspecified Qualified Code(s): K74.60 - Unspecified cirrhosis of liver Is this a current diagnosis for this admission?: No Plan: Etiology unknown. 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 Continue spironolactone. Avoid hepatotoxic medications. 08/10/2019-patient has history of cirrhosis of the liver. Etiology unknown. Plan is to continue spironolactone at this time. 08/11/19-nurse is concerned about low blood pressures. Plan to hold Spironolactone for now. 08/12/2019-blood pressure today is 103/76. Patient is persistently low blood pressures plan is to restart spironolactone for a cirrhosis of the liver. (3) Fall Qualifiers: Encounter type: initial encounter Qualified Code(s): W19.XXXA - Unspecified fall, initial encounter Is this a current diagnosis for this admission?: Yes Plan: 1120-patient admitted after fall found to have a pubis ramus fracture on conservative management awaiting for rehab placement. (4) Multiple closed stable fractures of ramus of right pubis Qualifiers: Encounter type: initial encounter Qualified Code(s): S32.591A - Other specified fracture of right pubis, initial encounter for closed fracture Is this a current diagnosis for this admission?: Yes Plan: Reviewed x-ray image which shows fractures involving the inferior and superior right pubis ramus Dr. Patricio has evaluated him and recommends conservative/nonsurgical management. PT OT Pain control with Tylenol and oxycodone. DVT prophylaxis with SCDs. Held off on Lovenox given thrombocytopenia. Discharge planning consulted for evaluation for acute rehab or SNF 08/10/2019-patient admitted with right pubis ramus fracture. And conservative management. Patient receiving pain management. Not on Lovenox because of thro mbocytopenia. Waiting for intermediate facility placement. 01/12/2020-patient admitted with right pubis ramus fracture on conservative management. She is waiting for placement. (5) Thrombocytopenia Is this a current diagnosis for this admission?: Yes - Plan Summary Summary: 08/03/2019 Temperature 97.2 pulse 95 blood pressure 100/44 O2 sat 100% on room air Patient was admitted secondary to a fall with resulting pelvic fractures She has underlying cirrhosis of the liver as well as chronic anemia, diabetes, thrombocytopenia Patient currently being evaluated and treated by physical therapy as well as occupational therapy Patient being evaluated for placement issues Patient's pain is currently under good control with Percocet She is on metformin as well as Lantus Patient appears to be medically stable for discharge as soon as placement issues are resolved 08/04/2019 Temperature 98.2 pulse 95 blood pressure 119/73 O2 sat 97% on room air Patient's applications for bed status have been sent out to intermediate facilities, currently waiting on her response Patient's blood sugars remain elevated We will increase her Lantus which is currently at 25 units nightly repeat labs in the morning Patient continues to work with physical therapy which recommends continued treatments and skilled rehabilitation acute setting after discharge 08/05/2019 Today I sat down and spoke with the patient concerning placement in her progress Discharge planning has put applications out to multiple facilities. Waiting to hear back from bed placement Vital signs are stable temperature 98.2 pulse 94 blood pressure 95/51, patient's blood pressure normally is 110/50, O2 sat 99% on room air CBC is stable, chemistry panel is stable, blood sugar appears to be slightly lower this morning after making changes to her Lantus Patient currently on 30 units nightly Patient is medically stable for discharge whenever a bed is available 08/06/2019 Patient's vital signs are all stable Recent labs are stable Patient is still receiving physical therapy daily. Waiting for bed placement 08/07/2019 Patient is up and ambulatory and being seen daily by physical therapy Patient is able to only tolerate limited weight shifting due to pain Physical therapy still recommends rehab in an acute setting to restore ambulation skills and improve independence and safety with transitions and minimize pain Applications have been sent to several facilities and waiting to hear from them 08/08/2019 Hopefully tomorrow we will hear from several of the facilities that we have requested bed placement with Medically patient is stable for discharge Labs are ordered for the morning
[2019-08-12] MEDS: INSULIN GLARGINE,HUM.REC.ANLOG 1,000 UNIT/10 ML VIAL SUBCUT SCH (21:47)
[2019-08-13] MEDS: OXYCODONE-ACETAMINOPHEN 5-325 MG TABLET PO PRN ×2 (05:15→15:55)
[2019-08-13] MEDS: LEVOTHYROXINE SODIUM 0.025 MG TABLET PO SCH (05:15)
[2019-08-13] MEDS ORDERED: (PENDING PHARMACY ID) (Spironolactone [Aldactone] 50 MG) PO SCH (10:00)
--- NOTE | 2019-08-13 10:01 | PDOC PROGRESS REPORT ---
Subjective Progress Note for:: 08/13/19 Subjective:: 74 year old female with a history of type 2 diabetes mellitus, cirrhosis [does not know unknown etiology], hypothyroidism, chronic anemia on epo, who was brought into the hospital by family after experiencing fall. Apparently patient was walking in the dark today when she experienced a mechanical fall. Denies any head impact. Denies any headache at this time. However patient complains of significant pain in her right hip. Denies any loss of consciousness. Also denies hitting her neck anywhere. In the emergency department, patient was noted to have a fracture of her right superior and inferior pubis ramus and subsequently Dr. Patricio was consulted who recommends admission and he will evaluate patient. Patient at this time complains of 8/10 pain in her right hip when she moves but if she lays steady the pain is only mild. 08/10/[id number]-old female with history of type 2 diabetes mellitus, cirrhosis of unknown etiology, hypothyroidism, chronic anemia and Epogen admitted after a fall. Found to have a pubis ramus fracture. On conservative management. Waiting for rehab placement. No acute events in the last 24 hours. Denies any problems. 08/11/1957-88-vqpk-old female admitted with a fall found to have a pubic ramus fracture. On conservative management. Waiting for placement. Denies any problems. Blood pressures are running low it is around 100/60 to hold spironolactone at this time. 08/12/1943-23-wxuc-old female with history of diabetes mellitus, cirrhosis of the liver of unknown etiology, hypothyroidism, chronic anemia admitted after a fall. Found to have a pubis ramus fracture. Patient waiting for placement. Comfortable in the chair communicating well. Denies any problems. 08/13/[id number]-ewrb-old female admitted with a fall found to have a pelvis ramus fracture. On conservative management waiting for placement. Reason For Visit: PUBIS RAMUS FRACTURE Physical Exam Vital Signs: Temp Pulse Resp BP Pulse Ox 97.6 F 90 17 110/50 L 100 08/13/19 06:41 08/13/19 06:41 08/13/19 06:41 08/13/19 06:41 08/13/19 06:41 Intake & Output 08/12/19 08/13/19 08/14/19 06:59 06:59 06:59 Intake Total 697 1536 Output Total 150 1500 Balance 547 36 Weight 57.3 kg 57 kg General appearance: PRESENT: no acute distress, thin Head exam: PRESENT: atraumatic Eye exam: PRESENT: PERRLA Mouth exam: PRESENT: moist, tongue midline Teeth exam: PRESENT: poor dentation Neck exam: ABSENT: carotid bruit, JVD, lymphadenopathy, thyromegaly Respiratory exam: PRESENT: decreased breath sounds Cardiovascular exam: PRESENT: RRR. ABSENT: diastolic murmur, rubs, systolic murmur GI/Abdominal exam: PRESENT: normal bowel sounds, soft. ABSENT: distended, guarding, mass, organolmegaly, rebound, tenderness Rectal exam: PRESENT: deferred Extremities exam: PRESENT: full ROM. ABSENT: calf tenderness, clubbing, pedal edema Neurological exam: PRESENT: alert, awake, oriented to person, oriented to place, oriented to time, oriented to situation, CN II-XII grossly intact. ABSENT: motor sensory deficit Psychiatric exam: PRESENT: appropriate affect, normal mood. ABSENT: homicidal ideation, suicidal ideation Results Laboratory Results: 08/12/19 04:20 08/12/19 04:20 08/10/19 23:40 Clean Catch Midstream Urine Culture - Final Enterobacter Cloacae Impressions: Hip/Pelvis X-Ray 08/01/19 00:00 IMPRESSION: FRACTURES OF THE RIGHT SUPERIOR AND INFERIOR PUBIC RAMUS. NO EVIDENCE OF HIP FRACTURE. CHRONIC DEGENERATIVE CHANGES. Assessment and Plan - Diagnosis (1) Chronic anemia Is this a current diagnosis for this admission?: No Plan: Patient states that she receives EPO about once a month outpatient. Hemoglobin seems to be stable at this time as compared to prior. 08/10/2019-patient has history of anemia of chronic disease hemoglobin 9.5. Patient is receiving up as an outpatient. 08/13/2019-patient has history of chronic anemia. Hemoglobin is stable. (2) Cirrhosis of liver Qualifiers: Hepatic cirrhosis type: unspecified hepatic cirrhosis Ascites presence: unspecified Qualified Code(s): K74.60 - Unspecified cirrhosis of liver Is this a current diagnosis for this admission?: No Plan: Etiology unknown. 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 Continue spironolactone. Avoid hepatotoxic medications. 08/10/2019-patient has history of cirrhosis of the liver. Etiology unknown. Plan is to continue spironolactone at this time. 08/11/19-nurse is concerned about low blood pressures. Plan to hold Spironolactone for now. 08/12/2019-blood pressure today is 103/76. Patient is persistently low blood pressures plan is to restart spironolactone for a cirrhosis of the liver. 08/13/19-blood pressure today is 110/50. Stable. Spironolactone is reinitiated because of the history of cirrhosis of the liver. (3) Fall Qualifiers: Encounter type: initial encounter Qualified Code(s): W19.XXXA - Unspecified fall, initial encounter Is this a current diagnosis for this admission?: Yes Plan: 1120-patient admitted after fall found to have a pubis ramus fracture on conservative management awaiting for rehab placement. (4) Multiple closed stable fractures of ramus of right pubis Qualifiers: Encounter type: initial encounter Qualified Code(s): S32.591A - Other specified fracture of right pubis, initial encounter for closed fracture Is this a current diagnosis for this admission?: Yes Plan: Reviewed x-ray image which shows fractures involving the inferior and superior right pubis ramus Dr. Patricio has evaluated him and recommends conservative/nonsurgical management. PT OT Pain control with Tylenol and oxycodone. DVT prophylaxis with SCDs. Held off on Lovenox given thrombocytopenia. Discharge planning consulted for evaluation for acute rehab or SNF 08/10/2019-patient admitted with right pubis ramus fracture. And conservative management. Patient receiving pain management. Not on Lovenox because of thrombocytopenia. Waiting for jail facility placement. 08/12/2019-patient admitted with right pubis ramus fracture on conservative management. She is waiting for placement. (5) Thrombocytopenia Is this a current diagnosis for this admission?: Yes Plan: Secondary to cirrhosis. (6) UTI (urinary tract infection) Qualifiers: Urinary tract infection type: site unspecified Hematuria presence: without hematuria Qualified Code(s): N39.0 - Urinary tract infection, site not sp ecified Is this a current diagnosis for this admission?: Yes Plan: 08/13/2019-urine culture came back positive for Enterobacter. To start on le vofloxacin 500 mg p.o. daily for 1 week. - Plan Summary Summary: 08/03/2019 Temperature 97.2 pulse 95 blood pressure 100/44 O2 sat 100% on room air Patient was admitted secondary to a fall with resulting pelvic fractures She has underlying cirrhosis of the liver as well as chronic anemia, diabetes, thrombocytopenia Patient currently being evaluated and treated by physical therapy as well as occupational therapy Patient being evaluated for placement issues Patient's pain is currently under good control with Percocet She is on metformin as well as Lantus Patient appears to be medically stable for discharge as soon as placement issues are resolved 08/04/2019 Temperature 98.2 pulse 95 blood pressure 119/73 O2 sat 97% on room air Patient's applications for bed status have been sent out to jail facilities, currently waiting on her response Patient's blood sugars remain elevated We will increase her Lantus which is currently at 25 units nightly repeat labs in the morning Patient continues to work with physical therapy which recommends continued treatments and skilled rehabilitation acute setting after discharge 08/05/2019 Today I sat down and spoke with the patient concerning placement in her progress Discharge planning has put applications out to multiple facilities. Waiting to hear back from bed placement Vital signs are stable temperature 98.2 pulse 94 blood pressure 95/51, patient's blood pressure normally is 110/50, O2 sat 99% on room air CBC is stable, chemistry panel is stable, blood sugar appears to be slightly lower this morning after making changes to her Lantus Patient currently on 30 units nightly Patient is medically stable for discharge whenever a bed is available 08/06/2019 Patient's vital signs are all stable Recent labs are stable Patient is still receiving physical therapy daily. Waiting for bed placement 08/07/2019 Patient is up and ambulatory and being seen daily by physical therapy Patient is able to only tolerate limited weight shifting due to pain Physical therapy still recommends rehab in an acute setting to restore ambulation skills and improve independence and safety with transitions and min imize pain Applications have been sent to several facilities and waiting to hear from them 08/08/2019 Hopefully tomorrow we will hear from several of the facilities that we have requested bed placement with Medically patient is stable for discharge Labs are ordered for the morning
[2019-08-13] MEDS: INSULIN LISPRO 100 UNIT/ML 3 ML VIAL SUBCUT SCH ×4 (10:27→21:24)
[2019-08-13] MEDS: DOCUSATE SODIUM 100 MG CAPSULE PO SCH (10:31)
[2019-08-13] MEDS: LEVOFLOXACIN 500 MG TABLET PO SCH (15:50)
[2019-08-13] MEDS: INSULIN GLARGINE,HUM.REC.ANLOG 1,000 UNIT/10 ML VIAL SUBCUT SCH (21:27)
[2019-08-14] MEDS: OXYCODONE-ACETAMINOPHEN 5-325 MG TABLET PO PRN ×3 (03:47→21:26)
[2019-08-14] MEDS: LEVOTHYROXINE SODIUM 0.025 MG TABLET PO SCH (05:51)
[2019-08-14 05:52] LABS: ABSOLUTE EOSINOPHILS # (AUTO) 0.1 10^3/uL (0.0-0.6); ABSOLUTE LYMPHOCYTES (AUTO) 0.2 10^3/uL (0.5-4.7); ABSOLUTE MONOCYTES (AUTO) 0.2 10^3/uL (0.1-1.4); ABSOLUTE NEUT (AUTO) 2.2 10^3/uL (1.7-8.2); BASOPHILS % (AUTO) 0.5 % (0-2); EOSINOPHILS % (AUTO) 1.9 % (0-6); HEMATOCRIT 24.9 % (36.0-47.0); HEMOGLOBIN 8.6 g/dL (12.0-15.5); LYMPHOCYTES % (AUTO) 7.6 % (13-45); MEAN CORPUSCULAR HEMOGLOBIN 32.6 pg (27.0-33.4); MEAN CORPUSCULAR HGB CONC 34.4 g/dL (32.0-36.0); MEAN CORPUSCULAR VOLUME 95 fl (80-97); MONOCYTES % (AUTO) 8.3 % (3-13); RED BLOOD COUNT 2.63 10^6/uL (3.72-5.28); RED CELL DISTRIBUTION WIDTH 16.1 % (11.5-14.0); SEGMENTED NEUTROPHILS % (AUTO) 81.7 % (42-78); TOTAL CELLS COUNTED % (AUTO) 100 %; WHITE BLOOD COUNT 2.7 10^3/uL (4.0-10.5)
[2019-08-14 06:16] LABS: ALBUMIN 2.9 g/dL (3.5-5.0); ALKALINE PHOSPHATASE 199 U/L (38-126); ANION GAP 8 (5-19); ASPARTATE AMINO TRANSFERASE 35 U/L (14-36); BILIRUBIN,DIRECT 0.1 mg/dL (0.0-0.4); BILIRUBIN,TOTAL 0.6 mg/dL (0.2-1.3); BLOOD UREA NITROGEN 33 mg/dL (7-20); CALCIUM 8.5 mg/dL (8.4-10.2); CARBON DIOXIDE 22 mmol/L (22-30); CHLORIDE 107 mmol/L (98-107); GLUCOSE 174 mg/dL (75-110); POTASSIUM 4.2 mmol/L (3.6-5.0); TOTAL PROTEIN 7.3 g/dL (6.3-8.2)
[2019-08-14 06:55] LABS: PLATELET COUNT 68 10^3/uL (150-450)
[2019-08-14] MEDS: INSULIN LISPRO 100 UNIT/ML 3 ML VIAL SUBCUT SCH ×4 (07:42→21:50)
[2019-08-14] MEDS: DOCUSATE SODIUM 100 MG CAPSULE PO SCH (09:38)
[2019-08-14] MEDS: LEVOFLOXACIN 500 MG TABLET PO SCH (11:46)
--- NOTE | 2019-08-14 14:38 | PDOC PROGRESS REPORT ---
Subjective Progress Note for:: 08/14/19 Subjective:: MELANY STILL is a 74 year old female with a history of type 2 diabetes mellitus, cirrhosis [does not know unknown etiology], hypothyroidism, chronic anemia on epo, who was brought into the hospital by family after experiencing fall. Apparently patient was walking in the dark today when she experienced a mechanical fall. Denies any head impact. Denies any headache at this time. However patient complains of significant pain in her right hip. Denies any loss of consciousness. Also denies hitting her neck anywhere. In the emergency department, patient was noted to have a fracture of her right superior and inferior pubis ramus and subsequently Dr. Patricio was consulted who recommends admission and he will evaluate patient. Patient at this time complains of 8/10 pain in her right hip when she moves but if she lays steady the pain is only mild. 08/14/2019. No acute events overnight. Comfortably sitting up in apparent distress. Denies any fever, chills, nausea, vomiting, diarrhea, constipation or any urinary symptoms. Ambulating with the help of PT. Patient is pending placement. Reason For Visit: PUBIS RAMUS FRACTURE Physical Exam Vital Signs: Temp Pulse Resp BP Pulse Ox 97.6 F 88 19 115/46 L 100 08/14/19 12:00 08/14/19 12:00 08/14/19 12:00 08/14/19 12:00 08/14/19 12:00 Intake & Output 08/13/19 08/14/19 08/15/19 06:59 06:59 06:59 Intake Total 1536 1182 Output Total 1500 400 Balance 36 782 Weight 57 kg 57.2 kg General appearance: PRESENT: no acute distress, well-developed, well-nourished Head exam: PRESENT: atraumatic, normocephalic Respiratory exam: PRESENT: clear to auscultation felix. ABSENT: rales, rhonchi, wheezes Cardiovascular exam: PRESENT: RRR. ABSENT: diastolic murmur, rubs, systolic mu rmur GI/Abdominal exam: PRESENT: normal bowel sounds, soft. ABSENT: distended, guarding, mass, organolmegaly, rebound, tenderness Neurological exam: PRESENT: alert, awake, oriented to person, oriented to place, oriented to time, oriented to situation, CN II-XII grossly intact. ABSENT: motor sensory deficit Results Laboratory Results: 08/14/19 04:51 08/14/19 04:51 08/14/19 08/14/19 04:51 04:51 WBC 2.7 L RBC 2.63 L Hgb 8.6 L Hct 24.9 L MCV 95 MCH 32.6 MCHC 34.4 RDW 16.1 H Plt Count 68 L Seg Neutrophils % 81.7 H Sodium 136.6 L Potassium 4.2 Chloride 107 Carbon Dioxide 22 Anion Gap 8 BUN 33 H Creatinine 0.91 Est GFR ( Amer) > 60 Glucose 174 H Calcium 8.5 Magnesium 2.0 Total Bilirubin 0.6 AST 35 Alkaline Phosphatase 199 H Total Protein 7.3 Albumin 2.9 L Impressions: Hip/Pelvis X-Ray 08/01/19 00:00 IMPRESSION: FRACTURES OF THE RIGHT SUPERIOR AND INFERIOR PUBIC RAMUS. NO EVIDENCE OF HIP FRACTURE. CHRONIC DEGENERATIVE CHANGES. Assessment and Plan - Diagnosis (1) Multiple closed stable fractures of ramus of right pubis Qualifiers: Encounter type: initial encounter Qualified Code(s): S32.591A - Other specified fracture of right pubis, initial encounter for closed fracture Is this a current diagnosis for this admission?: Yes Plan: Reviewed x-ray image which shows fractures involving the inferior and superior right pubis ramus Dr. Patricio has evaluated him and recommends conservative/nonsurgical management. PT OT Pain control with Tylenol and oxycodone. DVT prophylaxis with SCDs. Held off on Lovenox given thrombocytopenia. Discharge planning consulted for evaluation for acute rehab or SNF Pending placement. (2) Chronic anemia Is this a current diagnosis for this admission?: No Plan: Patient states that she receives EPO about once a month outpatient. Hemoglobin seems to be stable at this time as compared to prior. (3) Cirrhosis of liver Qualifiers: Hepatic cirrhosis type: unspecified hepatic cirrhosis Ascites presence: unspecified Qualified Code(s): K74.60 - Unspecified cirrhosis of liver Is this a current diagnosis for this admission?: No Plan: Etiology unknown. 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 Continue spironolactone. Avoid hepatotoxic medications. (4) Diabetes mellitus type 2 in nonobese Is this a current diagnosis for this admission?: Yes Plan: Controlled. Hemoglobin A1c 7.4% 04/15/2019. Home regimen: Humalog sliding scale, Lantus 30 units nightly but varies depending on blood sugars, metformin and Invokana Continue diabetic diet, sliding scale insulin, basal insulin, Accu-Chek, hypoglycemic protocol. Resume home regimen upon discharge. (5) Fall Qualifiers: Encounter type: initial encounter Qualified Code(s): W19.XXXA - Unspecified fall, initial encounter Is this a current diagnosis for this admission?: Yes Plan: Reported mechanical fall upon admission. Sustained a pubis ramus fracture. Conservative management has been recommended. Pending rehab placement. Continue PT. Implement fall precautions. (6) Thrombocytopenia Is this a current diagnosis for this admission?: Yes Plan: No sign of acute bleeding. Secondary to cirrhosis. Monitor for bleeding. Monitor H&H. (7) UTI (urinary tract infection) Qualifiers: Urinary tract infection type: site unspecified Hematuria presence: without hematuria Qualified Code(s): N39.0 - Urinary tract infection, site not specified Is this a current diagnosis for this admission?: Yes Plan: Due to Enterobacter cloacae. Sensitive to quinolones. Day 2/7 Levofloxacin 500 mg p.o. daily.
[2019-08-14] MEDS: INSULIN GLARGINE,HUM.REC.ANLOG 1,000 UNIT/10 ML VIAL SUBCUT SCH (21:25)
[2019-08-15] MEDS: LEVOTHYROXINE SODIUM 0.025 MG TABLET PO SCH (05:02)
[2019-08-15] MEDS: OXYCODONE-ACETAMINOPHEN 5-325 MG TABLET PO PRN ×2 (05:02→18:21)
[2019-08-15] MEDS: INSULIN LISPRO 100 UNIT/ML 3 ML VIAL SUBCUT SCH ×4 (08:29→21:12)
[2019-08-15] MEDS: DOCUSATE SODIUM 100 MG CAPSULE PO SCH (10:20)
--- NOTE | 2019-08-15 10:58 | PDOC PROGRESS REPORT ---
Subjective Progress Note for:: 08/15/19 Subjective:: MELANY STILL is a 74 year old female with a history of type 2 diabetes mellitus, cirrhosis [does not know unknown etiology], hypothyroidism, chronic anemia on epo, who was brought into the hospital by family after experiencing fall. Apparently patient was walking in the dark today when she experienced a mechanical fall. Denies any head impact. Denies any headache at this time. However patient complains of significant pain in her right hip. Denies any loss of consciousness. Also denies hitting her neck anywhere. In the emergency department, patient was noted to have a fracture of her right superior and inferior pubis ramus and subsequently Dr. Patricio was consulted who recommends admission and he will evaluate patient. Patient at this time complains of 8/10 pain in her right hip when she moves but if she lays steady the pain is only mild. 08/14/2019. No acute events overnight. Comfortably sitting up in apparent distress. Denies any fever, chills, nausea, vomiting, diarrhea, constipation or any urinary symptoms. Ambulating with the help of PT. Patient is pending placement. 08/15/2019. No acute events overnight. Denies any fever, chills, nausea, vomiting, diarrhea, constipation or any urinary symptoms. Pending placement. Reason For Visit: PUBIS RAMUS FRACTURE Physical Exam Vital Signs: Temp Pulse Resp BP Pulse Ox 98.2 F 91 18 96/49 L 99 08/15/19 07:49 08/15/19 07:49 08/15/19 07:49 08/15/19 07:49 08/15/19 07:49 Intake & Output 08/14/19 08/15/19 08/16/19 06:59 06:59 06:59 Intake Total 1182 980 Output Total 400 1100 Balance 782 -120 Weight 57.2 kg 58.2 kg General appearance: PRESENT: no acute distress, well-developed, well-nourished Head exam: PRESENT: atraumatic, normocephalic Respiratory exam: PRESENT: clear to auscultation felix. ABSENT: rales, rhonchi, wheezes Cardiovascular exam: PRESENT: RRR. ABSENT: diastolic murmur, rubs, systolic murmur Neurological exam: PRESENT: alert, awake, oriented to person, oriented to place, oriented to time, oriented to situation, CN II-XII grossly intact. ABSENT: motor sensory deficit Results Laboratory Results: 08/14/19 04:51 08/14/19 04:51 Impressions: Hip/Pelvis X-Ray 08/01/19 00:00 IMPRESSION: FRACTURES OF THE RIGHT SUPERIOR AND INFERIOR PUBIC RAMUS. NO EVIDENCE OF HIP FRACTURE. CHRONIC DEGENERATIVE CHANGES. Assessment and Plan - Diagnosis (1) Multiple closed stable fractures of ramus of right pubis Qualifiers: Encounter type: initial encounter Qualified Code(s): S32.591A - Other specified fracture of right pubis, initial encounter for closed fracture Is this a current diagnosis for this admission?: Yes Plan: Reviewed x-ray image which shows fractures involving the inferior and superior right pubis ramus Dr. Patricio has evaluated him and recommends conservative/nonsurgical management. PT OT Pain control with Tylenol and oxycodone. DVT prophylaxis with SCDs. Held off on Lovenox given thrombocytopenia. Discharge planning consulted for evaluation for acute rehab or SNF Pending placement. (2) Chronic anemia Is this a current diagnosis for this admission?: No Plan: Patient states that she receives EPO about once a month outpatient. Hemoglobin seems to be stable at this time as compared to prior. (3) Cirrhosis of liver Qualifiers: Hepatic cirrhosis type: unspecified hepatic cirrhosis Ascites presence: unspecified Qualified Code(s): K74.60 - Unspecified cirrhosis of liver Is this a current diagnosis for this admission?: No Plan: Etiology unknown. 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 Continue spironolactone. Avoid hepatotoxic medications. (4) Diabetes mellitus type 2 in nonobese Is this a current diagnosis for this admission?: Yes Plan: Controlled. Hemoglobin A1c 7.4% 04/15/2019. Home regimen: Humalog sliding scale, Lantus 30 units nightly but varies depe nding on blood sugars, metformin and Invokana Continue diabetic diet, sliding scale insulin, basal insulin, Accu-Chek, hypoglycemic protocol. Resume home regimen upon discharge. (5) Fall Qualifiers: Encounter type: initial encounter Qualified Code(s): W19.XXXA - Unspecified fall, initial encounter Is this a current diagnosis for this admission?: Yes Plan: Reported mechanical fall upon admission. Sustained a pubis ramus fracture. Conservative management has been recommended. Pending rehab placement. Continue PT. Implement fall precautions. (6) Thrombocytopenia Is this a current diagnosis for this admission?: Yes Plan: No sign of acute bleeding. Secondary to cirrhosis. Monitor for bleeding. Monitor H&H. (7) UTI (urinary tract infection) Qualifiers: Urinary tract infection type: site unspecified Hematuria presence: without hematuria Qualified Code(s): N39.0 - Urinary tract infection, site not specified Is this a current diagnosis for this admission?: Yes Plan: Due to Enterobacter cloacae. Sensitive to quinolones. Day 3/7 Levofloxacin 500 mg p.o. daily.
[2019-08-15] MEDS: LEVOFLOXACIN 500 MG TABLET PO SCH (13:44)
[2019-08-15] MEDS: INSULIN GLARGINE,HUM.REC.ANLOG 1,000 UNIT/10 ML VIAL SUBCUT SCH (21:10)
[2019-08-16] MEDS: OXYCODONE-ACETAMINOPHEN 5-325 MG TABLET PO PRN ×2 (00:03→16:12)
[2019-08-16] MEDS: LEVOTHYROXINE SODIUM 0.025 MG TABLET PO SCH (05:11)
[2019-08-16] MEDS: INSULIN LISPRO 100 UNIT/ML 3 ML VIAL SUBCUT SCH ×4 (07:47→21:51)
[2019-08-16] MEDS: DOCUSATE SODIUM 100 MG CAPSULE PO SCH (09:59)
--- NOTE | 2019-08-16 11:06 | PDOC PROGRESS REPORT ---
Subjective Progress Note for:: 08/16/19 Subjective:: MELANY STILL is a 74 year old female with a history of type 2 diabetes mellitus, cirrhosis [does not know unknown etiology], hypothyroidism, chronic anemia on epo, who was brought into the hospital by family after experiencing fall. Apparently patient was walking in the dark today when she experienced a mechanical fall. Denies any head impact. Denies any headache at this time. However patient complains of significant pain in her right hip. Denies any loss of consciousness. Also denies hitting her neck anywhere. In the emergency department, patient was noted to have a fracture of her right superior and inferior pubis ramus and subsequently Dr. Patricio was consulted who recommends admission and he will evaluate patient. Patient at this time complains of 8/10 pain in her right hip when she moves but if she lays steady the pain is only mild. 08/14/2019. No acute events overnight. Comfortably sitting up in apparent distress. Denies any fever, chills, nausea, vomiting, diarrhea, constipation or any urinary symptoms. Ambulating with the help of PT. Patient is pending placement. 08/15/2019. No acute events overnight. Denies any fever, chills, nausea, vomiting, diarrhea, constipation or any urinary symptoms. Pending placement. 08/16/2019. No acute events overnight. Pending placement. Reason For Visit: PUBIS RAMUS FRACTURE Physical Exam Vital Signs: Temp Pulse Resp BP Pulse Ox 98.7 F 85 16 109/72 98 08/16/19 08:00 08/16/19 08:00 08/16/19 08:00 08/16/19 08:00 08/16/19 08:00 Intake & Output 08/15/19 08/16/19 08/17/19 06:59 06:59 06:59 Intake Total 980 952 Output Total 1100 1000 Balance -120 -48 Weight 58.2 kg 60.3 kg General appearance: PRESENT: no acute distress, well-developed, well-nourished Head exam: PRESENT: atraumatic, normocephalic Respiratory exam: PRESENT: clear to auscultation felix. ABSENT: rales, rhonchi, wheezes Cardiovascular exam: PRESENT: RRR. ABSENT: diastolic murmur, rubs, systolic murmur GI/Abdominal exam: PRESENT: normal bowel sounds, soft. ABSENT: distended, guarding, mass, organolmegaly, rebound, tenderness Neurological exam: PRESENT: alert, awake, oriented to person, oriented to place, oriented to time, oriented to situation, CN II-XII grossly intact. ABSENT: motor sensory deficit Results Laboratory Results: 08/14/19 04:51 08/14/19 04:51 Impressions: Hip/Pelvis X-Ray 08/01/19 00:00 IMPRESSION: FRACTURES OF THE RIGHT SUPERIOR AND INFERIOR PUBIC RAMUS. NO EVIDENCE OF HIP FRACTURE. CHRONIC DEGENERATIVE CHANGES. Assessment and Plan - Diagnosis (1) Multiple closed stable fractures of ramus of right pubis Qualifiers: Encounter type: initial encounter Qualified Code(s): S32.591A - Other specified fracture of right pubis, initial encounter for closed fracture Is this a current diagnosis for this admission?: Yes Plan: Reviewed x-ray image which shows fractures involving the inferior and superior right pubis ramus Dr. Patricio has evaluated him and recommends conservative/nonsurgical management. PT OT Pain control with Tylenol and oxycodone. DVT prophylaxis with SCDs. Held off on Lovenox given thrombocytopenia. Discharge planning consulted for evaluation for acute rehab or SNF Pending placement. (2) Chronic anemia Is this a current diagnosis for this admission?: Yes Plan: Patient states that she receives EPO about once a month outpatient. Hemoglobin seems to be stable at this time as compared to prior. (3) Cirrhosis of liver Qualifiers: Hepatic cirrhosis type: unspecified hepatic cirrhosis Ascites presence: unspecified Qualified Code(s): K74.60 - Unspecified cirrhosis of liver Is this a current diagnosis for this admission?: No Plan: Etiology unknown. 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 Continue spironolactone. Avoid hepatotoxic medications. (4) Diabetes mellitus type 2 in nonobese Is this a current diagnosis for this admission?: Yes Plan: Controlled. Hemoglobin A1c 7.4% 04/15/2019. Home regimen: Humalog sliding scale, Lantus 30 units nightly but varies depending on blood sugars, metformin and Invokana Continue diabetic diet, sliding scale insulin, basal insulin, Accu-Chek, hypoglycemic protocol. Resume home regimen upon discharge. (5) Fall Qualifiers: Encounter type: initial encounter Qualified Code(s): W19.XXXA - Unspecified fall, initial encounter Is this a current diagnosis for this admission?: Yes Plan: Reported mechanical fall upon admission. Sustained a pubis ramus fracture. Conservative management has been recommended. Pending rehab placement. Continue PT. Implement fall precautions. (6) Thrombocytopenia Is this a current diagnosis for this admission?: Yes Plan: No sign of acute bleeding. Secondary to cirrhosis. Monitor for bleeding. Monitor H&H. (7) UTI (urinary tract infection) Qualifiers: Urinary tract infection type: site unspecified Hematuria presence: without hematuria Qualified Code(s): N39.0 - Urinary tract infection, site not specified Is this a current diagnosis for this admission?: Yes Plan: Due to Enterobacter cloacae. Sensitive to quinolones. Day 4/7 Levofloxacin 500 mg p.o. daily.
[2019-08-16] MEDS: LEVOFLOXACIN 500 MG TABLET PO SCH (12:33)
[2019-08-16] MEDS: INSULIN GLARGINE,HUM.REC.ANLOG 1,000 UNIT/10 ML VIAL SUBCUT SCH (21:52)
[2019-08-17] MEDS: LEVOTHYROXINE SODIUM 0.025 MG TABLET PO SCH (05:08)
[2019-08-17] MEDS: INSULIN LISPRO 100 UNIT/ML 3 ML VIAL SUBCUT SCH ×4 (07:23→22:39)
[2019-08-17] MEDS: OXYCODONE-ACETAMINOPHEN 5-325 MG TABLET PO PRN (08:28)
--- NOTE | 2019-08-17 10:10 | PDOC PROGRESS REPORT ---
Subjective Progress Note for:: 08/17/19 Subjective:: MELANY STILL is a 74 year old female with a history of type 2 diabetes mellitus, cirrhosis [does not know unknown etiology], hypothyroidism, chronic anemia on epo, who was brought into the hospital by family after experiencing fall. Apparently patient was walking in the dark today when she experienced a mechanical fall. Denies any head impact. Denies any headache at this time. However patient complains of significant pain in her right hip. Denies any loss of consciousness. Also denies hitting her neck anywhere. In the emergency department, patient was noted to have a fracture of her right superior and inferior pubis ramus and subsequently Dr. Patricio was consulted who recommends admission and he will evaluate patient. Patient at this time complains of 8/10 pain in her right hip when she moves but if she lays steady the pain is only mild. 08/17/2019. No acute events overnight. Pending placement. Reason For Visit: PUBIS RAMUS FRACTURE Physical Exam Vital Signs: Temp Pulse Resp BP Pulse Ox 97.8 F 92 17 104/49 L 98 08/17/19 07:20 08/17/19 07:20 08/17/19 07:20 08/17/19 07:20 08/17/19 07:20 Intake & Output 08/16/19 08/17/19 08/18/19 06:59 06:59 06:59 Intake Total 952 1442 Output Total 1000 150 Balance -48 1292 Weight 60.3 kg 60.4 kg General appearance: PRESENT: no acute distress, well-developed, well-nourished Head exam: PRESENT: atraumatic, normocephalic Respiratory exam: PRESENT: clear to auscultation felix. ABSENT: rales, rhonchi, wheezes Cardiovascular exam: PRESENT: RRR. ABSENT: diastolic murmur, rubs, systolic murmur GI/Abdominal exam: PRESENT: normal bowel sounds, soft. ABSENT: distended, guarding, mass, organolmegaly, rebound, tenderness Neurological exam: PRESENT: alert, awake, oriented to person, oriented to place, oriented to time, oriented to situation, CN II-XII grossly intact. ABSENT: motor sensory deficit Results Laboratory Results: 08/14/19 04:51 08/14/19 04:51 Impressions: Hip/Pelvis X-Ray 08/01/19 00:00 IMPRESSION: FRACTURES OF THE RIGHT SUPERIOR AND INFERIOR PUBIC RAMUS. NO EVIDENCE OF HIP FRACTURE. CHRONIC DEGENERATIVE CHANGES. Assessment and Plan - Diagnosis (1) Multiple closed stable fractures of ramus of right pubis Qualifiers: Encounter type: initial encounter Qualified Code(s): S32.591A - Other specified fracture of right pubis, initial encounter for closed fracture Is this a current diagnosis for this admission?: Yes Plan: Reviewed x-ray image which shows fractures involving the inferior and superior right pubis ramus Dr. Patricio has evaluated him and recommends conservative/nonsurgical management. PT OT Pain control with Tylenol and oxycodone. DVT prophylaxis with SCDs. Held off on Lovenox given thrombocytopenia. Discharge planning consulted for evaluation for acute rehab or SNF Pending placement. (2) Chronic anemia Is this a current diagnosis for this admission?: No Plan: Patient states that she receives EPO about once a month outpatient. Hemoglobin seems to be stable at this time as compared to prior. (3) Cirrhosis of liver Qualifiers: Hepatic cirrhosis type: unspecified hepatic cirrhosis Ascites presence: unspecified Qualified Code(s): K74.60 - Unspecified cirrhosis of liver Is this a current diagnosis for this admission?: No Plan: Etiology unknown. 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 Continue spironolactone. Avoid hepatotoxic medications. (4) Diabetes mellitus type 2 in nonobese Is this a current diagnosis for this admission?: Yes Plan: Controlled. Hemoglobin A1c 7.4% 04/15/2019. Home regimen: Humalog sliding scale, Lantus 30 units nightly but varies depending on blood sugars, metformin and Invokana Continue diabetic diet, sliding scale insulin, basal insulin, Accu-Chek, hypoglycemic protocol. Resume home regimen upon discharge. (5) Fall Qualifiers: Encounter type: initial encounter Qualified Code(s): W19.XXXA - Unspecified fall, initial encounter Is this a current diagnosis for this admission?: Yes Plan: Reported mechanical fall upon admission. Sustained a pubis ramus fracture. Conservative management has been recommended. Pending rehab placement. Continue PT. Implement fall precautions. (6) Thrombocytopenia Is this a current diagnosis for this admission?: Yes Plan: No sign of acute bleeding. Secondary to cirrhosis. Monitor for bleeding. Monitor H&H. (7) UTI (urinary tract infection) Qualifiers: Urinary tract infection type: site unspecified Hematuria presence: without hematuria Qualified Code(s): N39.0 - Urinary tract infection, site not specified Is this a current diagnosis for this admission?: Yes Plan: Due to Enterobacter cloacae. Sensitive to quinolones. Day 5/7 Levofloxacin 500 mg p.o. daily.
[2019-08-17] MEDS: DOCUSATE SODIUM 100 MG CAPSULE PO SCH (10:30)
[2019-08-17] MEDS: LEVOFLOXACIN 500 MG TABLET PO SCH (12:52)
[2019-08-17] MEDS: INSULIN GLARGINE,HUM.REC.ANLOG 1,000 UNIT/10 ML VIAL SUBCUT SCH (22:40)
[2019-08-18] MEDS: LEVOTHYROXINE SODIUM 0.025 MG TABLET PO SCH (05:55)
[2019-08-18] MEDS: INSULIN LISPRO 100 UNIT/ML 3 ML VIAL SUBCUT SCH ×4 (07:59→21:09)
--- NOTE | 2019-08-18 10:16 | PDOC TRANSFER SUMMARY ---
Impression - Admit/DC Date/PCP Admission Date/Primary Care Provider: 08/01/19 14:11 EDUARDO VALDEZ MD Discharge Date: 08/19/19 - Discharge Diagnosis (1) Multiple closed stable fractures of ramus of right pubis Is this a current diagnosis for this admission?: Yes (2) Chronic anemia Is this a current diagnosis for this admission?: No (3) Cirrhosis of liver Is this a current diagnosis for this admission?: No (4) Diabetes mellitus type 2 in nonobese Is this a current diagnosis for this admission?: Yes (5) Fall Is this a current diagnosis for this admission?: Yes (6) Thrombocytopenia Is this a current diagnosis for this admission?: Yes (7) UTI (urinary tract infection) Is this a current diagnosis for this admission?: Yes - Additional Information Resuscitation Status: Do Not Resuscitate - DNR/DNI confirmed by patient in the presence of her and granddaughter. Referrals: [facility] [Outside] EDUARDO VALDEZ MD [Primary Care Provider] - Home Medications: Canagliflozin [Invokana] 100 mg PO QAM 08/01/19 Insulin Glargine,Hum.rec.anlog [Lantus (Pyxis) Insulin 100 Unit/1 ml 10 ml] 30 units SUBCUT QPM 08/01/19 Insulin Lispro [Humalog Insulin (Lispro) 100 unit/mL] 0 unit SUBCUT .SLIDING SCALE 08/01/19 Levothyroxine Sodium [Synthroid 0.025 mg Tablet] 25 mcg PO Q6AM 08/01/19 Metformin HCl 500 mg PO BIDBS 08/01/19 Spironolactone [Aldactone] 50 mg PO DAILY 08/01/19 History of Present Illiness History of Present Illness: MELANY STILL is a 74 year old female with a history of type 2 diabetes mellitus, cirrhosis [does not know unknown etiology], hypothyroidism, chronic anemia on epo, who was brought into the hospital by family after experiencing fall. Apparently patient was walking in the dark today when she experienced a mechanical fall. Denies any head impact. Denies any headache at this time. However patient complains of significant pain in her right hip. Denies any loss of consciousness. Also denies hitting her neck anywhere. In the emergency department, patient was noted to have a fracture of her right superior and inferior pubis ramus and subsequently Dr. Patricio was consulted who recommends admission and he will evaluate patient. Patient at this time complains of 8/10 pain in her right hip when she moves but if she lays steady the pain is only mild. Hospital Course Hospital Course: (1) Multiple closed stable fractures of ramus of right pubis x-ray showed fractures involving the inferior and superior right pubis ramus Dr. Patricio has evaluated him and recommended conservative/nonsurgical managem ent. Has been receiving PT OT while in the hospital. Pain has been controlled with Tylenol and oxycodone. Continue physical therapy upon discharge. (2) Chronic anemia She has history of cirrhosis most likely cryptogenic , history of variceal bleeding as well as hypocellular bone marrow. As per patient she has had colonoscopy in the past which was reported as normal. Patient is guaiac positive however stating that she does not want any upper GI endoscopy because of risk of variceal bleeding. She is being followed by Pau Rodney for administration of darbepoetin alpha 100 MCG biweekly at [facility] She is due for administration of darbepoetin alpha, but unfortunately we do not carry darbepoetin jayjay at [facility]. I contacted Dr. Mai at [facility] through his nurse who stated that she could receive erythropoietin alpha 20,000 units instead. Patient received 20,000 units of neutropenia also on 08/18/2019. She has a follow-up appointment at [facility] with Dr. Mai on 09/17/2023 next darbepoetin administration. (3) Cirrhosis of liver Etiology unknown. 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 Continue spirono lactone. Avoid hepatotoxic medications. (4) Diabetes mellitus type 2 in nonobese Controlled. Hemoglobin A1c 7.4% 04/15/2019. Home regimen: Humalog sliding scale, Lantus 30 units nightly but varies depending on blood sugars, metformin and Invokana Started on diabetic diet, sliding scale insulin, basal insulin, Accu-Chek, hypoglycemic protocol. Resume home regimen upon discharge. (5) Fall Reported mechanical fall upon admission. Sustained a pubis ramus fracture. Conservative management has been recommended. Pending rehab placement. Continue PT. Implement fall precautions. (6) Thrombocytopenia No sign of acute bleeding. Secondary to cirrhosis. Monitor for bleeding. Monitor H&H. (7) UTI (urinary tract infection) Due to Enterobacter cloacae. Sensitive to quinolones. Day 6 out of 7 of levofloxacin p.o. daily. Continue levofloxacin 500 mg p.o. for another day. Physical Exam Vital Signs: Temp Pulse Resp BP Pulse Ox 97.7 F 87 14 121/47 L 99 08/18/19 08:00 08/18/19 08:00 08/18/19 08:00 08/18/19 08:00 08/18/19 08:00 Intake & Output 08/17/19 08/18/19 08/19/19 06:59 06:59 06:59 Intake Total 1442 1409 Output Total 150 1325 Balance 1292 84 Weight 60.4 kg 60.4 kg General appearance: PRESENT: no acute distress, well-developed, well-nourished Head exam: PRESENT: atraumatic, normocephalic Respiratory exam: PRESENT: clear to auscultation felix. ABSENT: rales, rhonchi, wheezes Cardiovascular exam: PRESENT: RRR. ABSENT: diastolic murmur, rubs, systolic murmur Extremities exam: PRESENT: full ROM. ABSENT: calf tenderness, clubbing, pedal edema Neurological exam: PRESENT: alert, awake, oriented to person, oriented to place, oriented to time, oriented to situation, CN II-XII grossly intact. ABSENT: motor sensory deficit Results Laboratory Results: WBC 2.7 10^3/uL (4.0-10.5) L 08/14/19 04:51 RBC 2.63 10^6/uL (3.72-5.28) L 08/14/19 04:51 Hgb 8.6 g/dL (12.0-15.5) L 08/14/19 04:51 Hct 24.9 % (36.0-47.0) L 08/14/19 04:51 MCV 95 fl (80-97) 08/14/19 04:51 MCH 32.6 pg (27.0-33.4) 08/14/19 04:51 MCHC 34.4 g/dL (32.0-36.0) 08/14/19 04:51 RDW 16.1 % (11.5-14.0) H 08/14/19 04:51 Plt Count 68 10^3/uL (150-450) L 08/14/19 04:51 Lymph % (Auto) 7.6 % (13-45) L 08/14/19 04:51 [place] % (Auto) 8.3 % (3-13) 08/14/19 04:51 Eos % (Auto) 1.9 % (0-6) 08/14/19 04:51 Baso % (Auto) 0.5 % (0-2) 08/14/19 04:51 Absolute Neuts (auto) 2.2 10^3/uL (1.7-8.2) 08/14/19 04:51 Absolute Lymphs (auto) 0.2 10^3/uL (0.5-4.7) L 08/14/19 04:51 Absolute Monos (auto) 0.2 10^3/uL (0.1-1.4) 08/14/19 04:51 Absolute Eos (auto) 0.1 10^3/uL (0.0-0.6) 08/14/19 04:51 Absolute Basos (auto) 0.0 10^3/uL (0.0-0.2) 08/14/19 04:51 Seg Neutrophils % 81.7 % (42-78) H 08/14/19 04:51 PT 15.8 SEC (11.4-15.4) H 08/01/19 12:50 INR 1.25 08/01/19 12:50 APTT 33.8 SEC (23.5-35.8) 08/01/19 12:50 Sodium 136.6 mmol/L (137-145) L 08/14/19 04:51 Potassium 4.2 mmol/L (3.6-5.0) 08/14/19 04:51 Chloride 107 mmol/L (98-107) 08/14/19 04:51 Carbon Dioxide 22 mmol/L (22-30) 08/14/19 04:51 Anion Gap 8 (5-19) 08/14/19 04:51 BUN 33 mg/dL (7-20) H 08/14/19 04:51 Creatinine 0.91 mg/dL (0.52-1.25) 08/14/19 04:51 Est GFR ( Amer) > 60 (>60) 08/14/19 04:51 Est GFR (MDRD) Non-Af > 60 (>60) 08/14/19 04:51 Glucose 174 mg/dL (75-110) H 08/14/19 04:51 POC Glucose 199 mg/dL (70-110) H 08/18/19 06:20 Calcium 8.5 mg/dL (8.4-10.2) 08/14/19 04:51 Magnesium 2.0 mg/dL (1.6-2.3) 08/14/19 04:51 Total Bilirubin 0.6 mg/dL (0.2-1.3) 08/14/19 04:51 Direct Bilirubin 0.1 mg/dL (0.0-0.4) 08/14/19 04:51 Neonat Total Bilirubin Not Reportable 08/14/19 04:51 Neonat Direct Bilirubin Not Reportable 08/14/19 04:51 Neonat Indirect Bili Not Reportable 08/14/19 04:51 AST 35 U/L (14-36) 08/14/19 04:51 ALT 26 U/L (<35) 08/14/19 04:51 Alkaline Phosphatase 199 U/L (38-126) H 08/14/19 04:51 Total Protein 7.3 g/dL (6.3-8.2) 08/14/19 04:51 Albumin 2.9 g/dL (3.5-5.0) L 08/14/19 04:51 Urine Color YELLOW 08/08/19 15:30 Urine Appearance SLIGHTLY-CLOUDY 08/08/19 15:30 Urine pH 6.0 (5.0-9.0) 08/08/19 15:30 Ur Specific [place] 1.015 08/08/19 15:30 Urine Protein NEGATIVE mg/dL (NEGATIVE) 08/08/19 15:30 Urine Glucose (UA) NEGATIVE mg/dL (NEGATIVE) 08/08/19 15:30 Urine Ketones NEGATIVE mg/dL (NEGATIVE) 08/08/19 15:30 Urine Blood SMALL (NEGATIVE) H 08/08/19 15:30 Urine Nitrite POSITIVE (NEGATIVE) H 08/08/19 15:30 Urine Bilirubin NEGATIVE (NEGATIVE) 08/08/19 15:30 Urine Urobilinogen NEGATIVE mg/dL (<2.0) 08/08/19 15:30 Ur Leukocyte Esterase MODERATE (NEGATIVE) H 08/08/19 15:30 Urine WBC (Auto) 50 /HPF 08/08/19 15:30 Urine RBC (Auto) 2 /HPF 08/08/19 15:30 Urine Bacteria (Auto) 1+ /HPF 08/08/19 15:30 Squamous Epi Cells Auto 2 /HPF 08/08/19 15:30 Urine Mucus (Auto) RARE /LPF 08/08/19 15:30 Urine Ascorbic Acid 40 (NEGATIVE) H 08/08/19 15:30 Stool Occult Blood POSITIVE (NEGATIVE) 08/10/19 17:30 Impressions: Hip/Pelvis X-Ray 08/01/19 00:00 IMPRESSION: FRACTURES OF THE RIGHT SUPERIOR AND INFERIOR PUBIC RAMUS. NO EVIDENCE OF HIP FRACTURE. CHRONIC DEGENERATIVE CHANGES. Plan Goals: PATIENT IS GOING TO A SNF Stroke Is this a Stroke Patient?: No Acute Heart Failure - Is this a Heart Failure Patient?: No
[2019-08-18] MEDS: LEVOFLOXACIN 500 MG TABLET PO SCH (11:18)
[2019-08-18] MEDS: DOCUSATE SODIUM 100 MG CAPSULE PO SCH (11:18)
[2019-08-18 15:23] LABS: ABSOLUTE EOSINOPHILS # (AUTO) 0.1 10^3/uL (0.0-0.6); ABSOLUTE LYMPHOCYTES (AUTO) 0.2 10^3/uL (0.5-4.7); ABSOLUTE MONOCYTES (AUTO) 0.2 10^3/uL (0.1-1.4); BASOPHILS % (AUTO) 0.5 % (0-2); EOSINOPHILS % (AUTO) 2.5 % (0-6); HEMATOCRIT 26.7 % (36.0-47.0); LYMPHOCYTES % (AUTO) 8.1 % (13-45); MEAN CORPUSCULAR HEMOGLOBIN 32.4 pg (27.0-33.4); MEAN CORPUSCULAR HGB CONC 33.6 g/dL (32.0-36.0); MEAN CORPUSCULAR VOLUME 96 fl (80-97); MONOCYTES % (AUTO) 6.4 % (3-13); RED BLOOD COUNT 2.77 10^6/uL (3.72-5.28); RED CELL DISTRIBUTION WIDTH 16.1 % (11.5-14.0); SEGMENTED NEUTROPHILS % (AUTO) 82.5 % (42-78); TOTAL CELLS COUNTED % (AUTO) 100 %; WHITE BLOOD COUNT 2.5 10^3/uL (4.0-10.5)
[2019-08-18 16:09] LABS: PLATELET COUNT 72 10^3/uL (150-450)
[2019-08-18] MEDS ORDERED: EPOETIN ALFA-EPBX 10,000 UNIT/ML VIAL (NON-ESRD) SUBCUT ONE (18:30)
[2019-08-18] MEDS: INSULIN GLARGINE,HUM.REC.ANLOG 1,000 UNIT/10 ML VIAL SUBCUT SCH (21:10)
[2019-08-19] MEDS: LEVOTHYROXINE SODIUM 0.025 MG TABLET PO SCH (05:57)
[2019-08-19] MEDS: INSULIN LISPRO 100 UNIT/ML 3 ML VIAL SUBCUT SCH ×2 (08:04→11:35)
[2019-08-19] MEDS: DOCUSATE SODIUM 100 MG CAPSULE PO SCH (09:17)
[2019-08-19] MEDS: LEVOFLOXACIN 500 MG TABLET PO SCH (11:36)
[2019-08-19 11:42] VITALS: BP 120/46
== END 2019-08-19 13:18 | DRG 536 ==
LOC: ER 10:45 → EH 13:28 → OBSVTOIN 14:11 → 4N 14:50
PROVIDERS: ADMIT Internal Medicine; ATTEND Internal Medicine
DX: S32.591A Other specified fracture of right pubis, initial encounter for closed fracture (principal); N39.0 Urinary tract infection, site not specified; D69.6 Thrombocytopenia, unspecified; K74.60 Unspecified cirrhosis of liver; D64.9 Anemia, unspecified; E11.9 Type 2 diabetes mellitus without complications; E03.9 Hypothyroidism, unspecified; B96.89 Other specified bacterial agents as the cause of diseases classified elsewhere; Z66 Do not resuscitate; W19.XXXA Unspecified fall, initial encounter; E78.5 Hyperlipidemia, unspecified; I10 Essential (primary) hypertension; K44.9 Diaphragmatic hernia without obstruction or gangrene; M19.90 Unspecified osteoarthritis, unspecified site; F32.9 Major depressive disorder, single episode, unspecified; R01.1 Cardiac murmur, unspecified; Z79.4 Long term (current) use of insulin; Z79.899 Other long term (current) drug therapy; Z87.891 Personal history of nicotine dependence; Z82.49 Family history of ischemic heart disease and other diseases of the circulatory system
CPT/HCPCS: 36415; 80048; 80053; 81001; 82272; 82962; 83735; 85025; 85027; 85610; 85730; 87086; 87088; 87186; 93005; 93010; 94667; 94799; 99284; C1758; J1815; Q5106

== ENCOUNTER → 2019-10-12 | Outpatient (CLI) | payer MEDICARE, OTHER ==
[2019-10-12 09:00] LABS: ABSOLUTE EOSINOPHILS # (AUTO) 0.1 10^3/uL (0.0-0.6); ABSOLUTE LYMPHOCYTES (AUTO) 0.3 10^3/uL (0.5-4.7); ABSOLUTE MONOCYTES (AUTO) 0.2 10^3/uL (0.1-1.4); ABSOLUTE NEUT (AUTO) 2.2 10^3/uL (1.7-8.2); BASOPHILS % (AUTO) 0.5 % (0-2); EOSINOPHILS % (AUTO) 2.5 % (0-6); HEMATOCRIT 26.7 % (36.0-47.0); LYMPHOCYTES % (AUTO) 9.8 % (13-45); MEAN CORPUSCULAR HEMOGLOBIN 30.9 pg (27.0-33.4); MEAN CORPUSCULAR HGB CONC 33.8 g/dL (32.0-36.0); MEAN CORPUSCULAR VOLUME 92 fl (80-97); MONOCYTES % (AUTO) 8.5 % (3-13); RED BLOOD COUNT 2.92 10^6/uL (3.72-5.28); RED CELL DISTRIBUTION WIDTH 17.8 % (11.5-14.0); SEGMENTED NEUTROPHILS % (AUTO) 78.7 % (42-78); TOTAL CELLS COUNTED % (AUTO) 100 %; WHITE BLOOD COUNT 2.7 10^3/uL (4.0-10.5)
[2019-10-12 09:01] LABS: INTERNATIONAL RATION (INR) 1.23; PROTHROMBIN TIME 15.6 SEC (11.4-15.4)
[2019-10-12 09:25] LABS: ALBUMIN 3.5 g/dL (3.5-5.0); ALKALINE PHOSPHATASE 127 U/L (38-126); ANION GAP 7 (5-19); ASPARTATE AMINO TRANSFERASE 36 U/L (14-36); BILIRUBIN,DIRECT 0.1 mg/dL (0.0-0.4); BILIRUBIN,TOTAL 0.6 mg/dL (0.2-1.3); BLOOD UREA NITROGEN 46 mg/dL (7-20); CALCIUM 9.2 mg/dL (8.4-10.2); CARBON DIOXIDE 25 mmol/L (22-30); CHLORIDE 108 mmol/L (98-107); GLUCOSE 186 mg/dL (75-110); POTASSIUM 4.9 mmol/L (3.6-5.0); TOTAL PROTEIN 8.6 g/dL (6.3-8.2)
[2019-10-12 09:31] LABS: PLATELET COUNT 72 10^3/uL (150-450)
== END ==
LOC: OD 08:12
PROVIDERS: ATTEND Nurse Practitioner
DX: K74.60 Unspecified cirrhosis of liver (principal)
CPT/HCPCS: 36415; 80053; 82105; 85025; 85610